=== PATIENT | male | born 1980 | race Two or more races ===

== ENCOUNTER 2016-07-16 14:28 | Emergency (ER) | payer SELFPAY ==
[~2016-07-16] VITALS: Ht 175.3 cm; Wt 98.5 kg
[2016-07-16 15:07] VITALS: Ht 175.3 cm; Wt 98.5 kg
== END 2016-07-16 18:39 | disposition left against medical advice (07) ==
LOC: FTE 14:28
DX: Z53.21 Procedure and treatment not carried out due to patient leaving prior to being seen by health care provider (principal)

== ENCOUNTER 2018-06-10 18:32 | Emergency (ER) | END 2018-06-10 21:25 | disposition home or self-care (01) ==

== ENCOUNTER 2018-11-22 19:15 | Observation (INO) | payer BC ==
[~2018-11-22] VITALS: Ht 175.3 cm; Wt 95.9 kg
[~2018-11-22 19:15] MED LIST: CEPH-443 PO; IBUP800T48 PO
--- NOTE | 2018-11-22 20:13 | ERD ---
ER Documentation Chief Complaint Chief Complaint WITNESSED SEIZURE LASTING APPROX 30 SEC. "PER WITNESS, PT STIFFENED UP". HPI The patient is a 38-year-old male, presenting to the ER because of a witnessed seizure lasting for approximately 30 seconds per EMS. He is unable to provide any history, the history is obtained from EMS and medical record. He has history of substance abuse Medical history: HIV Past surgical l history/ social history/review of system: Unable to obtain due to his condition ROS All systems reviewed and are negative except as per history of present illness. Medications Home Meds Discontinued Scripts Ibuprofen* (Motrin*) 800 Mg Tab, 800 MG PO Q6, #30 TAB Prov:ROGELIO FINE PA-C 06/10/18 Cephalexin* (Keflex*) 500 Mg Capsule, 500 MG PO QID for 7 Days, CAP Prov:ROGELIO FINE PA-C 06/10/18 Allergies Allergies: Coded Allergies: No Known Drug Allergy (Verified Allergy, Unknown, 11/22/18) PMhx/Soc Hx Miscellaneous Medical Probl: Yes (HIV (+), HEMMORHOIDS, BACK PAIN/PROBLEMS) Hx Alcohol Use: No Hx Substance Use: Yes (SMOKES METH, LAST USE TODAY) Hx Tobacco Use: No Smoking Status: Unknown if ever smoked Physical Exam Vitals Vital Signs Date Temp Pulse Resp B/P (MAP) Pulse Ox O2 O2 Flow FiO2 Time Delivery Rate 11/22/18 98.7 99 22 140/86 98 19:19 (104) Physical Exam Const: No acute distress. Head: Atraumatic. Eyes: Normal Conjunctiva. ENT: Normal External Ears, Nose and Mouth. Neck: Full range of motion. No meningismus. Resp: Clear to auscultation bilaterally. Cardio: Regular rate and rhythm. Abd: Soft, non distended, normal bowel sounds, non tender. Skin: No petechiae or rashes. Back: No midline or flank tenderness. Ext: No cyanosis, or edema. Neur: Unable to perform due to his condition Psych: Unable to perform due to his condition Result Diagram: 11/22/18192911/22/181929 Results 24 hrs Laboratory Tests Test 11/22/18 19:30 11/22/18 20:38 White Blood Count 9.6 10^3/ul Red Blood Count 4.87 10^6/ul Hemoglobin 13.3 g/dl Hematocrit 42.6 % Mean Corpuscular Volume 87.5 fl Mean Corpuscular Hemoglobin 27.3 pg Mean Corpuscular Hemoglobin Concent 31.2 g/dl Red Cell Distribution Width 13.9 % Platelet Count 279 10^3/UL Mean Platelet Volume 9.6 fl Immature Granulocytes % 0.200 % Neutrophils % 65.0 % Lymphocytes % 23.9 % Monocytes % 9.6 % Eosinophils % 1.1 % Basophils % 0.2 % Nucleated Red Blood Cells % 0.0 /100WBC Immature Granulocytes # 0.020 10^3/ul Neutrophils # 6.3 10^3/ul Lymphocytes # 2.3 10^3/ul Monocytes # 0.9 10^3/ul Eosinophils # 0.1 10^3/ul Basophils # 0.0 10^3/ul Nucleated Red Blood Cells # 0.0 10^3/ul Sodium Level 144 mmol/L Potassium Level 3.6 mmol/L Chloride Level 107 mmol/L Carbon Dioxide Level 30 mmol/L Anion Gap 7 Blood Urea Nitrogen 9 mg/dl Creatinine 0.96 mg/dl Est Glomerular Filtrat Rate mL/min > 60 mL/min Glucose Level 85 mg/dl Calcium Level 8.8 mg/dl Total Bilirubin 0.5 mg/dl Direct Bilirubin 0.00 mg/dl Indirect Bilirubin 0.5 mg/dl Aspartate Amino Transf (AST/SGOT) 39 IU/L Alanine Aminotransferase (ALT/SGPT) 41 IU/L Alkaline Phosphatase 94 IU/L Total Protein 7.3 g/dl Albumin 4.1 g/dl Globulin 3.20 g/dl Albumin/Globulin Ratio 1.28 Salicylates Level < 1.0 mg/dl Acetaminophen Level < 10.0 ug/ml Ethyl Alcohol Level < 10.0 mg/dl Bedside Glucose 97 mg/dL Current Medications Medications Dose Sig/Minda Start Time Status Last (Trade) Ordered Route PRN Stop Time Admin Dose Reason Admin 100 ml @ ONCE ONCE 11/22/18 Levetiracetam 400 mls/hr IVPB 22:00 11/22/18 22:14 Procedures/MDM [address] [address] Radiology Main Line: [phone] DIAGNOSTIC IMAGING REPORT Patient: ELOINA CONTI : 1980 Age: 38 Sex: M MR #: [id number] DOS: 11/22/182016 Ordering MD: JO ANN LE MD Location: E/R Room/Bed: PROCEDURE: CT brain without contrast CLINICAL INDICATION: Headaches. Medical clearance TECHNIQUE: A CT of the brain was performed utilizing axial sections from the skull base through the vertex without contrast. Sagittal and coronal images were also reformatted. DICOM images are available. One or more of the following dose reduction techniques were used: Automated exposure control, adjustment of the mA and/or kV according to patient size, use of iterative reconstruction technique. The exam CTDIvol = 38.20 mGy and DLP = 634.23 mGy-cm. COMPARISON: None available FINDINGS: No acute intracranial hemorrhage is identified. There is no mass effect or midline shift. No extra-axial fluid collection is seen. The ventricles and sulci are within normal limits for size and configuration. The density of the brain is within normal limits. Pierre-white differentiation is preserved. The osseous structures are unremarkable. The mastoid air cells and visualized paranasal sinuses are clear. RPTAT:HJJR IMPRESSION: Unremarkable noncontrast CT of the brain. Physician Audi Date Time Electronically viewed and signed by Physician Audi on 11/22/2018 21:32 JR/ CC: JO ANN LE MD [id number] [place] [address] Radiology Main Line: [phone] DIAGNOSTIC IMAGING REPORT Patient: ELOINA CONTI : 1980 Age: 38 Sex: M MR #: [id number] DOS: 11/22/182016 Ordering MD: JO ANN LE MD Location: E/R Room/Bed: PROCEDURE: XR chest. CLINICAL INDICATION: Mental status change TECHNIQUE: Portable AP view of the chest was obtained. COMPARISON: None. FINDINGS: Cardiomediastinal silhouette is normal. There is no pneumothorax or pleural effusion. There is no focal pulmonic consolidation. IMPRESSION: 1. No acute pulmonary abnormality. RPTAT:HAJM Physician Subhash Date Time Electronically viewed and signed by Physician Subhash on 11/22/2018 21:33 RM/ CC: JO ANN LE MD [id number] EKG: Read by emergency physician Rate/Rhythm: Normal Sinus Rhythm 98 beats/min QRS, ST, T-waves: No ST elevation, no T inversion Impression: Normal EKG UA/UDS Pending MEDICAL MAKING DECISION: He is a 38-year-old male, presenting with acute new onset seizure, was treated with Keppra 1000 mg IV, has seizure precaution. The differential diagnoses considered include but are not limited to substance abuse, psychiatric illness, anxiety attack, panic attack Departure Diagnosis: Primary Impression: New onset seizure Additional Impressions: Encephalopathy acute Anemia Condition: Stable Comments I discussed the findings with the patient. I am waiting for the admitting physician to call back to admit the patient. The patient is admitted to Tel Disclaimer: Inadvertent spelling and grammatical errors are likely due to EHR/dictation software use and do not reflect on the overall quality of patient care. Also, please note that the electronic time recorded on this note does not necessarily reflect the actual time of the patient encounter. JO ANN LE MD November 22, 2018 20:13
[2018-11-22] MEDS ORDERED: LEVETIRACETAM 1000 MG (PMX) 100 ML IVPB ONE (22:00)
[2018-11-22] MEDS ORDERED: SOD CHLORIDE 0.9% 1,000 ML IV SCH (22:03)
[2018-11-22] MEDS ORDERED: ACETAMINOPHEN 325 MG TAB PO PRN (22:30)
[2018-11-22] MEDS ORDERED: DOCUSATE SODIUM 100 MG CAP PO PRN (22:30)
[2018-11-22] MEDS ORDERED: NACL 0.9% 3 ML SYG IV SCH (22:30)
[2018-11-22] MEDS ORDERED: BISACODYL (EC) 5 MG TAB PO PRN (22:30)
[2018-11-23] VITALS (8 sets, daily range): BP systolic 124–136; BP diastolic 79–80; PULSE 90–105; RESP 18; Ht 175.3 cm; Wt 95.9 kg
--- NOTE | 2018-11-23 02:49 | HP ---
Date/Time of Note Date/Time of Note DATE: 11/23/18 TIME: 02:48 Assessment/Plan VTE Prophylaxis SCD applied (from Nsg): Yes Pharmacological prophylaxis: NA/contraindicated Pharm contraindication: low risk/ambulating Lines/Catheters IV Catheter Type (from Nrsg): Peripheral IV Assessment/Plan Hospital Course This is a 38-year-old male being admitted to the telemetry floor for observation for: #1 acute encephalopathy: At this time patient appears to be back to baseline. Likely toxic metabolic secondary to illicit drug use. CT scan of the head and was negative for any acute abnormalities. Will monitor patient closely. Urine drug screen positive for methamphetamine. Patient also reports use of GHB #2 witnessed seizure: Patient had a witnessed seizure at work which lasted approximately 30 seconds. He has not had any seizure activity prior. This likely was provoked by illicit drug use in the setting of methamphetamine and GHB use. Urine drug screen was positive for amphetamines. He was given a dose of Keppra in the emergency department, I will not continue him on any further antiseizure medications at the current time. PRN Ativan for seizures. Seizure precautions. CT of the brain was negative for any acute abnormalities. As this was a first-time seizure I will not pursue any further work-up at the current time. If he does have recurrent seizures and consider MRI of the brain and neurology consultation. #3 illicit drug use: Reports ongoing methamphetamine and GHB use. Will need to encourage cessation. Monitor for signs of withdrawal. PRN Ativan #4 tobacco use: Encourage cessation #5 HIV positive: We will need to confirm patient's home medications and c ontinue. He does follow-up in the clinic as an outpatient and states that he is undetectable. Further work-up as an outpatient #6 DVT GI prophylaxis: SCDs, no GI prophylaxis indicated Further treatment strategy will be implemented as per the clinical course Result Diagram: 11/22/18192911/22/181929 Results 24hrs Laboratory Tests Test 11/22/18 19:30 11/22/18 20:38 11/22/18 22:35 11/22/18 22:36 White Blood Count 9.6 Red Blood Count 4.87 Hemoglobin 13.3 L Hematocrit 42.6 Mean Corpuscular 87.5 Volume Mean Corpuscular 27.3 L Hemoglobin Mean Corpuscular 31.2 L Hemoglobin Concen t Red Cell 13.9 Distribution Width Platelet Count 279 Mean Platelet 9.6 Volume Immature 0.200 Granulocytes % Neutrophils % 65.0 Lymphocytes % 23.9 Monocytes % 9.6 Eosinophils % 1.1 Basophils % 0.2 Nucleated Red 0.0 Blood Cells % Immature 0.020 Granulocytes # Neutrophils # 6.3 Lymphocytes # 2.3 Monocytes # 0.9 Eosinophils # 0.1 Basophils # 0.0 Nucleated Red 0.0 Blood Cells # Sodium Level 144 Potassium Level 3.6 Chloride Level 107 Carbon Dioxide 30 Level Anion Gap 7 Blood Urea 9 Nitrogen Creatinine 0.96 Est Glomerular > 60 Filtrat Rate mL/min Glucose Level 85 Calcium Level 8.8 Total Bilirubin 0.5 Direct Bilirubin 0.00 Indirect 0.5 Bilirubin Aspartate Amino 39 Transf (AST/SGOT) Alanine 41 Aminotransferase (ALT/SGPT) Alkaline 94 Phosphatase Total Protein 7.3 Albumin 4.1 Globulin 3.20 Albumin/Globulin 1.28 Ratio Salicylates Level < 1.0 L Acetaminophen < 10.0 L Level Ethyl Alcohol < 10.0 H Level HIV (1&2) REACTIVE H Antibody Bedside Glucose 97 Urine Opiates Negative Screen Urine Negative Barbiturates Urine POSITIVE Amphetamines Screen Urine Negative Benzodiazepines Screen Urine Cocaine Negative Screen Urine Negative Cannabinoids Urine Color KIMMIE Urine Clarity SLIGHTLY CLOUDY A Urine pH 5.0 Urine Specific 1.027 [place] Urine Ketones TRACE A Urine Nitrite NEGATIVE Urine Bilirubin NEGATIVE Urine 2+ H Urobilinogen Urine Leukocyte NEGATIVE Esterase Urine Microscopic 4 RBC Urine Microscopic 1 WBC Urine Bacteria FEW A Urine Mucus MODERATE Urine Hemoglobin NEGATIVE Urine Glucose NEGATIVE Urine Total NEGATIVE Protein HPI/ROS Admit Date/Time Admit Date/Time Hx of Present Illness Chief complaint: Seizure per EMS The following history was obtained from the ED physician documentation as well partially from the patient as he was not able to give a full details given his seizures. Patient presented to [facility] ER after he was witnessed to have a seizure that lasted approximately 30 seconds as per the EMS. 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 Upon arrival to the [facility] patient initially was not able to provide any history however he did subsequently return to baseline mental status. CT of the brain was performed that did not show any acute abnormalities. Patient was given a loading dose of Keppra in the emergency department. Upon my examination of the patient at the bedside he did appear to be alert and oriented x3. He did report that he felt slightly weak however he felt like he was near his baseline. He denies any previous history of seizures. He did report using methamphetamines as well as GHB within a few hours prior to the seizure event. He denied any chest pain or nausea vomiting or diarrhea. Patient does report that he has a history of HIV and he does follow-up regularly at a clinic. He does report that his counts are undetectable Allergies: NKDA Medications: See NAGI MUHAMMAD Const: As per HPI Eyes : No pain discharge or redness or change in visual acuity ENT: No pain, sore throat, congestion, congestion, dysphagia or discharge Respiratory: No shortness of breath, cough, sputum, wheezing, or pleuritic pain Cardiovascular: No chest pain, palpitation, PND, or edema GI : no change in appetite, abdominal pain, nausea, vomiting, diarrhea, constipation, or change in the color his stool Genitourinary: No dysuria, hematuria, flank pain , discharge or CVA tenderness Musculoskeletal: No joint pain, back pain, neck pain, restricted range of motion in neck or joints Skin: No rash, bruising or hives Neuro: As per HPI Endocrine: No polyuria, polydipsia, temperature intolerance Psych: No hallucination, depression, anxiety or suicidal ideation PMH/Family/Social Past Medical History HIV positive Medications Current Medications Sodium Chloride 1,000 ml @ 100 mls/hr Q10H IV ; Start 11/22/18 at 22:03; Stop 11/23/18 at 08:02 IV Flush (NS 3 ml) 3 ml PER PROTOCOL IV ; Start 11/22/18 at 22:30 Lorazepam (Ativan) 2 mg Q2H PRN IV SEIZURES; Start 11/22/18 at 22:30 Acetaminophen (Tylenol Tab) 650 mg Q6H PRN PO .PAIN 1-3 OR TEMP; Start 11/22/18 at 22:30 Docusate Sodium (Colace) 100 mg Q12H PRN PO .CONSTIPATION; Start 11/22/18 at 22:30 Bisacodyl (Dulcolax) 5 mg DAILY PRN PO .CONSTIPATION; Start 11/22/18 at 22:30 Coded Allergies: No Known Drug Allergy (Verified Allergy, Unknown, 11/22/18) Past Surgical History Past Surgical Hx: no surgical history Family History Significant Family History: no pertinent family hx Social History Smoking Status: Current every day smoker Drug Use: other (methamphetamine, GHB) Exam/Review of Systems Vital Signs Vitals Vital Signs Date Temp Pulse Resp B/P (MAP) Pulse Ox O2 O2 Flow FiO2 Time Delivery Rate 11/22/18 93 20 117/71 100 Room Air 23:49 (86) 11/22/18 98.7 19:19 Exam Exam General: Patient is a pleasant male currently lying in bed in no acute distress, he does appear tired HEENT: Atraumatic, normocephalic. The pupils are equal, round and reactive. Extraocular motor are intact, no visible tongue lesion noted Neck: Supple with full range of motion. No rigidity or meningismus Chest: Nontender Lungs: Clear to auscultation bilaterally no crackles rales or wheezing Heart: Normal S1-S2, Regular rhythm and rate. Abdomen: Soft , nontender, nondistended , bowel sounds are present. No guarding no rebound tenderness , No masses or organomegaly. No costovertebral temporal angle mass Extremities: Normal to inspection, no edema no cyanosis Neurologic: Normal mental status, speech normal, cranial nerves II through XII are intact, motor and sensory are intact,, Psych: Currently patient does not appear to be anxious or tremulous. Additional Comments PROCEDURE: CT brain without contrast CLINICAL INDICATION: Headaches. Medical clearance TECHNIQUE: A CT of the brain was performed utilizing axial sections from the skull base through the vertex without contrast. Sagittal and coronal images were also reformatted. DICOM images are available. One or more of the following dose reduction techniques were used: Automated exposure control, adjustment of the mA and/or kV according to patient size, use of iterative reconstruction technique. The exam CTDIvol = 38.20 mGy and DLP = 634.23 mGy-cm. COMPARISON: None available FINDINGS: No acute intracranial hemorrhage is identified. There is no mass effect or midline shift. No extra-axial fluid collection is seen. The ventricles and sulci are within normal limits for size and configuration. The density of the brain is within normal limits. Pierre-white differentiation is preserved. The osseous structures are unremarkable. The mastoid air cells and visualized paranasal sinuses are clear. RPTAT:HJJR IMPRESSION: Unremarkable noncontrast CT of the brain. Mason Moore Physician Date Time Electronically viewed and signed by Mason Moore Physician on 11/22/2018 21:32 JR/ CC: JO ANN LE MD [id number] PROCEDURE: XR chest. CLINICAL INDICATION: Mental status change TECHNIQUE: Portable AP view of the chest was obtained. COMPARISON: None. FINDINGS: Cardiomediastinal silhouette is normal. There is no pneumothorax or pleural effusion. There is no focal pulmonic consolidation. IMPRESSION: 1. No acute pulmonary abnormality. RPTAT:HAJM Racheal Gongora Physician Date Time Electronically viewed and signed by Racheal Gongora Physician on 11/22/2018 21:33 RM/ CC: JO ANN LE MD [id number] LASHA JOE November 23, 2018 02:49
[2018-11-23] MEDS: LORAZEPAM 2 MG INJ IV PRN ×3 (05:44→21:11)
--- NOTE | 2018-11-23 12:21 | CONS ---
Assessment/Plan Assessment/Plan Hospital Course 38 yo M with hx of HIV who presents for evaluation following his first reported seizure of life... for which neurology is consulted. He notes using methamphetamine, which is likely the underlying precipitant. New onset epilepsy is unlikely. CTH is unremarkable. P: MRI brain for further characterization EEG to evaluate for epileptiform activity Ok to defer AED therapy for now Ativan IV PRN prolonged seizure or for cluster Cont medical management per primary Will follow clinically Consultation Date/Type/Reason Admit Date/Time Type of Consult Neurology Reason for Consultation seizure Requesting Provider: SREEKANTH MARCANO MD Date/Time of Note DATE: 11/23/18 TIME: 12:19 Hx of Present Illness 38 yo M with hx of HIV and illicit drug use who presented to the ED following a witnessed seizure episode. History was obtained from pt and chart review. The pt states that he uses methamphetamine and GHB daily. He states that yesterday he had used them and within a couple hours, he was told he had a seizure. He recalls waking up in the hospital. He denies prior seizure episodes. He does confirm a hx of HIV. He currently endorses feeling weak and tired. Hx of Present Illness Chief complaint: Seizure per EMS The following history was obtained from the ED physician documentation as well partially from the patient as he was not able to give a full details given his seizures. Patient presented to [facility] ER after he was witnessed to have a seizure that lasted approximately 30 seconds as per the EMS. 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 Upon arrival to the [facility] patient initially was not able to provide any history however he did subsequently return to baseline mental status. CT of the brain was performed that did not show any acute abnormalities. Patient was given a loading dose of Keppra in the emergency department. Upon my examination of the patient at the bedside he did appear to be alert and oriented x3. He did report that he felt slightly weak however he felt like he was near his baseline. He denies any previous history of seizures. He did report using methamphetamines as well as GHB within a few hours prior to the seizure event. He denied any chest pain or nausea vomiting or diarrhea. Patient does report that he has a history of HIV and he does follow-up regularly at a clinic. He does report that his counts are undetectable negative unless noted otherwise in HPI Exam/Review of Systems Exam Vitals Vital Signs Date Temp Pulse Resp B/P (MAP) Pulse Ox O2 O2 Flow FiO2 Time Delivery Rate 11/23/18 98.8 101 18 136/79 99 Room Air 11:13 (98) Exam PE: Gen Appearance: No Apparent Distress HEENT: Normocephalic Cardiovascular: Regular rate Lungs: Clear bilaterally Abdomen: Soft Extremities: Dry NE: The patient was alert and oriented. Language was normal. Fund of knowledge was normal. Pupils were equal and reactive to light. There was no afferent pupillary defect. Visual shultz were normal. Funduscopic examination was limited. Extra-ocular movements were full. Ptosis was absent. There was no nystagmus. Facial sensation was normal. Face was symmetric with normal strength. Hearing was intact. Palate movements were normal. Neck strength was normal. There was normal tongue bulk and speed of movement. Tone was normal. Muscle bulk was normal. Mild hand tremors were noted. Arms and legs were mildly weak, symmetrically. Vibration sensation was normal. Temperature and pinprick sensation was normal. Rapid alternating movements were normal. There was no dysmetria. There was no intention tremor. Gait was deferred due to bedrest. Arm and leg reflexes were 2+ and symmetric. Anaya's sign was absent. Plantar responses were flexor. Results Result Diagram: 11/23/18 0425 11/23/18 0425 Results 24hrs Laboratory Tests Test 11/22/18 19:30 11/22/18 20:38 11/22/18 22:35 11/22/18 22:36 White Blood Count 9.6 Red Blood Count 4.87 Hemoglobin 13.3 L Hematocrit 42.6 Mean Corpuscular 87.5 Volume Mean Corpuscular 27.3 L Hemoglobin Mean Corpuscular 31.2 L Hemoglobin Concen t Red Cell 13.9 Distribution Width Platelet Count 279 Mean Platelet 9.6 Volume Immature 0.200 Granulocytes % Neutrophils % 65.0 Lymphocytes % 23.9 Monocytes % 9.6 Eosinophils % 1.1 Basophils % 0.2 Nucleated Red 0.0 Blood Cells % Immature 0.020 Granulocytes # Neutrophils # 6.3 Lymphocytes # 2.3 Monocytes # 0.9 Eosinophils # 0.1 Basophils # 0.0 Nucleated Red 0.0 Blood Cells # Sodium Level 144 Potassium Level 3.6 Chloride Level 107 Carbon Dioxide 30 Level Anion Gap 7 Blood Urea 9 Nitrogen Creatinine 0.96 Est Glomerular > 60 Filtrat Rate mL/min Glucose Level 85 Calcium Level 8.8 Total Bilirubin 0.5 Direct Bilirubin 0.00 Indirect 0.5 Bilirubin Aspartate Amino 39 Transf (AST/SGOT) Alanine 41 Aminotransferase (ALT/SGPT) Alkaline 94 Phosphatase Total Protein 7.3 Albumin 4.1 Globulin 3.20 Albumin/Globulin 1.28 Ratio Salicylates Level < 1.0 L Acetaminophen < 10.0 L Level Ethyl Alcohol < 10.0 H Level HIV (1&2) REACTIVE H Antibody Bedside Glucose 97 Urine Opiates Negative Screen Urine Negative Barbiturates Urine POSITIVE Amphetamines Screen Urine Negative Benzodiazepines Screen Urine Cocaine Negative Screen Urine Negative Cannabinoids Urine Color KIMMIE Urine Clarity SLIGHTLY CLOUDY A Urine pH 5.0 Urine Specific 1.027 [place] Urine Ketones TRACE A Urine Nitrite NEGATIVE Urine Bilirubin NEGATIVE Urine 2+ H Urobilinogen Urine Leukocyte NEGATIVE Esterase Urine Microscopic 4 RBC Urine Microscopic 1 WBC Urine Bacteria FEW A Urine Mucus MODERATE Urine Hemoglobin NEGATIVE Urine Glucose NEGATIVE Urine Total NEGATIVE Protein Test 11/23/18 04:25 White Blood Count 7.4 # Red Blood Count 4.65 L Hemoglobin 12.7 L Hematocrit 39.9 L Mean Corpuscular 85.8 Volume Mean Corpuscular 27.3 L Hemoglobin Mean Corpuscular 31.8 L Hemoglobin Concen t Red Cell 14.2 Distribution Width Platelet Count 250 Mean Platelet 9.7 Volume Immature 0.300 Granulocytes % Neutrophils % 61.2 Lymphocytes % 27.3 Monocytes % 9.4 Eosinophils % 1.5 Basophils % 0.3 Nucleated Red 0.0 Blood Cells % Immature 0.020 Granulocytes # Neutrophils # 4.5 Lymphocytes # 2.0 Monocytes # 0.7 Eosinophils # 0.1 Basophils # 0.0 Nucleated Red 0.0 Blood Cells # Sodium Level 141 Potassium Level 3.3 L Chloride Level 106 Carbon Dioxide 27 Level Anion Gap 8 Blood Urea 10 Nitrogen Creatinine 0.88 Est Glomerular > 60 Filtrat Rate mL/min Glucose Level 102 Hemoglobin A1c 5.2 Calcium Level 8.9 Total Bilirubin 0.6 Direct Bilirubin 0.00 Indirect 0.6 Bilirubin Aspartate Amino 32 Transf (AST/SGOT) Alanine 33 Aminotransferase (ALT/SGPT) Alkaline 89 Phosphatase Total Protein 6.3 # Albumin 3.6 Globulin 2.70 Albumin/Globulin 1.33 Ratio Triglycerides 56 Level Cholesterol Level 112 LDL Cholesterol, 49 Calculated HDL Cholesterol 52 Cholesterol/HDL 2.1 Ratio Thyroid 1.490 Stimulating Hormone (TSH) Medications Medication Current Medications IV Flush (NS 3 ml) 3 ml PER PROTOCOL IV ; Start 11/22/18 at 22:30 Lorazepam (Ativan) 2 mg Q2H PRN IV SEIZURES Last administered on 11/23/18at 05: 44; Admin Dose 2 MG; Start 11/22/18 at 22:30 Acetaminophen (Tylenol Tab) 650 mg Q6H PRN PO .PAIN 1-3 OR TEMP; Start 11/22/18 at 22:30 Docusate Sodium (Colace) 100 mg Q12H PRN PO .CONSTIPATION; Start 11/22/18 at 22:30 Bisacodyl (Dulcolax) 5 mg DAILY PRN PO .CONSTIPATION; Start 11/22/18 at 22:30 Past Medical History reviewed Home Meds Discontinued Scripts Ibuprofen* (Motrin*) 800 Mg Tab, 800 MG PO Q6, #30 TAB Prov:ROGELIO FINE PA-C 06/10/18 Cephalexin* (Keflex*) 500 Mg Capsule, 500 MG PO QID for 7 Days, CAP Prov:ROGELIO FINE PA-C 06/10/18 Medications Current Medications IV Flush (NS 3 ml) 3 ml PER PROTOCOL IV ; Start 11/22/18 at 22:30 Lorazepam (Ativan) 2 mg Q2H PRN IV SEIZURES Last administered on 11/23/18at 05:44; Admin Dose 2 MG; Start 11/22/18 at 22:30 Acetaminophen (Tylenol Tab) 650 mg Q6H PRN PO .PAIN 1-3 OR TEMP; Start 11/22/18 at 22:30 Docusate Sodium (Colace) 100 mg Q12H PRN PO .CONSTIPATION; Start 11/22/18 at 22:30 Bisacodyl (Dulcolax) 5 mg DAILY PRN PO .CONSTIPATION; Start 11/22/18 at 22:30 Allergies: Coded Allergies: No Known Drug Allergy (Verified Allergy, Unknown, 11/22/18) Past Surgical History reviewed Past Surgical Hx: no surgical history Social History reviewed Smoking Status: Current every day smoker Drug Use: other (methamphetamine, GHB) BEREKET HERNANDEZ NP November 23, 2018 12:21
[2018-11-23] MEDS ORDERED: POTASSIUM CHLORIDE 20 MEQ POWDER FOR ORAL SOLN PO ONE (14:30)
--- NOTE | 2018-11-23 15:12 | PN ---
Date/Time of Note Date/Time of Note DATE: 11/23/18 TIME: 15:04 Assessment/Plan VTE Prophylaxis Risk score (from Ns)>0 risk: 1 SCD applied (from Ns): Yes Pharmacological prophylaxis: heparin Lines/Catheters IV Catheter Type (from [facility]): Peripheral IV Urinary Cath still in place: No Assessment/Plan Hospital Course 38 yo male with HIV who suffered seizure Seizure: - AEDs per neurology - EEG pending HIV: - Continue ARVs Result Diagram: 11/23/1842411/23/18424 Results 24hrs Laboratory Tests Test 11/22/18 19:30 11/22/18 20:38 11/22/18 22:35 11/22/18 22:36 White Blood Count 9.6 Red Blood Count 4.87 Hemoglobin 13.3 L Hematocrit 42.6 Mean Corpuscular 87.5 Volume Mean Corpuscular 27.3 L Hemoglobin Mean Corpuscular 31.2 L Hemoglobin Concen t Red Cell 13.9 Distribution Width Platelet Count 279 Mean Platelet 9.6 Volume Immature 0.200 Granulocytes % Neutrophils % 65.0 Lymphocytes % 23.9 Monocytes % 9.6 Eosinophils % 1.1 Basophils % 0.2 Nucleated Red 0.0 Blood Cells % Immature 0.020 Granulocytes # Neutrophils # 6.3 Lymphocytes # 2.3 Monocytes # 0.9 Eosinophils # 0.1 Basophils # 0.0 Nucleated Red 0.0 Blood Cells # Sodium Level 144 Potassium Level 3.6 Chloride Level 107 Carbon Dioxide 30 Level Anion Gap 7 Blood Urea 9 Nitrogen Creatinine 0.96 Est Glomerular > 60 Filtrat Rate mL/min Glucose Level 85 Calcium Level 8.8 Total Bilirubin 0.5 Direct Bilirubin 0.00 Indirect 0.5 Bilirubin Aspartate Amino 39 Transf (AST/SGOT) Alanine 41 Aminotransferase (ALT/SGPT) Alkaline 94 Phosphatase Total Protein 7.3 Albumin 4.1 Globulin 3.20 Albumin/Globulin 1.28 Ratio Salicylates Level < 1.0 L Acetaminophen < 10.0 L Level Ethyl Alcohol < 10.0 H Level HIV (1&2) REACTIVE H Antibody Bedside Glucose 97 Urine Opiates Negative Screen Urine Negative Barbiturates Urine POSITIVE Amphetamines Screen Urine Negative Benzodiazepines Screen Urine Cocaine Negative Screen Urine Negative Cannabinoids Urine Color KIMMIE Urine Clarity SLIGHTLY CLOUDY A Urine pH 5.0 Urine Specific 1.027 Odd Urine Ketones TRACE A Urine Nitrite NEGATIVE Urine Bilirubin NEGATIVE Urine 2+ H Urobilinogen Urine Leukocyte NEGATIVE Esterase Urine Microscopic 4 RBC Urine Microscopic 1 WBC Urine Bacteria FEW A Urine Mucus MODERATE Urine Hemoglobin NEGATIVE Urine Glucose NEGATIVE Urine Total NEGATIVE Protein Test 11/23/18 04:25 White Blood Count 7.4 # Red Blood Count 4.65 L Hemoglobin 12.7 L Hematocrit 39.9 L Mean Corpuscular 85.8 Volume Mean Corpuscular 27.3 L Hemoglobin Mean Corpuscular 31.8 L Hemoglobin Concen t Red Cell 14.2 Distribution Width Platelet Count 250 Mean Platelet 9.7 Volume Immature 0.300 Granulocytes % Neutrophils % 61.2 Lymphocytes % 27.3 Monocytes % 9.4 Eosinophils % 1.5 Basophils % 0.3 Nucleated Red 0.0 Blood Cells % Immature 0.020 Granulocytes # Neutrophils # 4.5 Lymphocytes # 2.0 Monocytes # 0.7 Eosinophils # 0.1 Basophils # 0.0 Nucleated Red 0.0 Blood Cells # Sodium Level 141 Potassium Level 3.3 L Chloride Level 106 Carbon Dioxide 27 Level Anion Gap 8 Blood Urea 10 Nitrogen Creatinine 0.88 Est Glomerular > 60 Filtrat Rate mL/min Glucose Level 102 Hemoglobin A1c 5.2 Calcium Level 8.9 Total Bilirubin 0.6 Direct Bilirubin 0.00 Indirect 0.6 Bilirubin Aspartate Amino 32 Transf (AST/SGOT) Alanine 33 Aminotransferase (ALT/SGPT) Alkaline 89 Phosphatase Total Protein 6.3 # Albumin 3.6 Globulin 2.70 Albumin/Globulin 1.33 Ratio Triglycerides 56 Level Cholesterol Level 112 LDL Cholesterol, 49 Calculated HDL Cholesterol 52 Cholesterol/HDL 2.1 Ratio Thyroid 1.490 Stimulating Hormone (TSH) Subjective 24 Hr Interval Summary Free Text/Dictation Feels very tired No further seizures Exam/Review of Systems Exam Vitals Vital Signs Date Temp Pulse Resp B/P (MAP) Pulse Ox O2 O2 Flow FiO2 Time Delivery Rate 11/23/18 104 12:26 11/23/18 98.8 18 136/79 99 Room Air 11:13 (98) Results Results 24hrs Laboratory Tests Test 11/22/18 19:30 11/22/18 20:38 11/22/18 22:35 11/22/18 22:36 White Blood Count 9.6 Red Blood Count 4.87 Hemoglobin 13.3 L Hematocrit 42.6 Mean Corpuscular 87.5 Volume Mean Corpuscular 27.3 L Hemoglobin Mean Corpuscular 31.2 L Hemoglobin Concen t Red Cell 13.9 Distribution Width Platelet Count 279 Mean Platelet 9.6 Volume Immature 0.200 Granulocytes % Neutrophils % 65.0 Lymphocytes % 23.9 Monocytes % 9.6 Eosinophils % 1.1 Basophils % 0.2 Nucleated Red 0.0 Blood Cells % Immature 0.020 Granulocytes # Neutrophils # 6.3 Lymphocytes # 2.3 Monocytes # 0.9 Eosinophils # 0.1 Basophils # 0.0 Nucleated Red 0.0 Blood Cells # Sodium Level 144 Potassium Level 3.6 Chloride Level 107 Carbon Dioxide 30 Level Anion Gap 7 Blood Urea 9 Nitrogen Creatinine 0.96 Est Glomerular > 60 Filtrat Rate mL/min Glucose Level 85 Calcium Level 8.8 Total Bilirubin 0.5 Direct Bilirubin 0.00 Indirect 0.5 Bilirubin Aspartate Amino 39 Transf (AST/SGOT) Alanine 41 Aminotransferase (ALT/SGPT) Alkaline 94 Phosphatase Total Protein 7.3 Albumin 4.1 Globulin 3.20 Albumin/Globulin 1.28 Ratio Salicylates Level < 1.0 L Acetaminophen < 10.0 L Level Ethyl Alcohol < 10.0 H Level HIV (1&2) REACTIVE H Antibody Bedside Glucose 97 Urine Opiates Negative Screen Urine Negative Barbiturates Urine POSITIVE Amphetamines Screen Urine Negative Benzodiazepines Screen Urine Cocaine Negative Screen Urine Negative Cannabinoids Urine Color KIMMIE Urine Clarity SLIGHTLY CLOUDY A Urine pH 5.0 Urine Specific 1.027 Odd Urine Ketones TRACE A Urine Nitrite NEGATIVE Urine Bilirubin NEGATIVE Urine 2+ H Urobilinogen Urine Leukocyte NEGATIVE Esterase Urine Microscopic 4 RBC Urine Microscopic 1 WBC Urine Bacteria FEW A Urine Mucus MODERATE Urine Hemoglobin NEGATIVE Urine Glucose NEGATIVE Urine Total NEGATIVE Protein Test 11/23/18 04:25 White Blood Count 7.4 # Red Blood Count 4.65 L Hemoglobin 12.7 L Hematocrit 39.9 L Mean Corpuscular 85.8 Volume Mean Corpuscular 27.3 L Hemoglobin Mean Corpuscular 31.8 L Hemoglobin Concen t Red Cell 14.2 Distribution Width Platelet Count 250 Mean Platelet 9.7 Volume Immature 0.300 Granulocytes % Neutrophils % 61.2 Lymphocytes % 27.3 Monocytes % 9.4 Eosinophils % 1.5 Basophils % 0.3 Nucleated Red 0.0 Blood Cells % Immature 0.020 Granulocytes # Neutrophils # 4.5 Lymphocytes # 2.0 Monocytes # 0.7 Eosinophils # 0.1 Basophils # 0.0 Nucleated Red 0.0 Blood Cells # Sodium Level 141 Potassium Level 3.3 L Chloride Level 106 Carbon Dioxide 27 Level Anion Gap 8 Blood Urea 10 Nitrogen Creatinine 0.88 Est Glomerular > 60 Filtrat Rate mL/min Glucose Level 102 Hemoglobin A1c 5.2 Calcium Level 8.9 Total Bilirubin 0.6 Direct Bilirubin 0.00 Indirect 0.6 Bilirubin Aspartate Amino 32 Transf (AST/SGOT) Alanine 33 Aminotransferase (ALT/SGPT) Alkaline 89 Phosphatase Total Protein 6.3 # Albumin 3.6 Globulin 2.70 Albumin/Globulin 1.33 Ratio Triglycerides 56 Level Cholesterol Level 112 LDL Cholesterol, 49 Calculated HDL Cholesterol 52 Cholesterol/HDL 2.1 Ratio Thyroid 1.490 Stimulating Hormone (TSH) Medications Medication Current Medications IV Flush (NS 3 ml) 3 ml PER PROTOCOL IV ; Start 11/22/18 at 22:30 Lorazepam (Ativan) 2 mg Q2H PRN IV SEIZURES Last administered on 11/23/18at 05:44; Admin Dose 2 MG; Start 11/22/18 at 22:30 Acetaminophen (Tylenol Tab) 650 mg Q6H PRN PO .PAIN 1-3 OR TEMP; Start 11/22/18 at 22:30 Docusate Sodium (Colace) 100 mg Q12H PRN PO .CONSTIPATION; Start 11/22/18 at 22:30 Bisacodyl (Dulcolax) 5 mg DAILY PRN PO .CONSTIPATION; Start 11/22/18 at 22:30 SREEKANTH MARCANO MD November 23, 2018 15:11
[2018-11-24] VITALS (10 sets, daily range): BP systolic 123–134; BP diastolic 77–86; PULSE 64–100; RESP 18–20
--- NOTE | 2018-11-24 07:11 | EEG ---
EEG NOTE Report Details DATE OF TEST: 11/23/18 HISTORY: The patient is a 38-year-old M who presents following his first seizure of life. This EEG is requested to evaluate for an epileptic disorder. SEDATION: None. CONDITIONS OF RECORDING: This EEG was recorded digitally on the [employer] machine, using the [employer] 10-20 System of electrodes plus anterior temporals and Nz. STATES SAMPLED: Wakefulness and drowsiness. FINDINGS: During wakefulness, a well-formed posterior dominant rhythm was absent. The normal [id number] frequency-amplitude gradient was absent. The remainder of the awake background is notable for admixed theta and delta activity. Photic stimulation does not elicit any definite driving responses or epileptiform discharges. Hyperventilation was not performed. No asymmetries, focal abnormalities or epileptiform discharges were seen. IMPRESSION: Abnormal electroencephalogram due to: mild diffuse slowing. KASEY LAWSON November 24, 2018 07:11
--- NOTE | 2018-11-24 13:34 | CONS ---
Assessment/Plan Assessment/Plan Hospital Course 38 yo M with hx of HIV who presents for evaluation following his first reported seizure of life... for which neurology is consulted. He notes using methamphetamine, which is likely the underlying precipitant. New onset epilepsy is unlikely. MRI brain is technically limited, though without obvious acute intracranial pathology. EEG is normal. P: Ok to defer AED therapy for now Ativan IV PRN prolonged seizure or for cluster Cont medical management per primary Encourage illicit drug cessation Will follow Consultation Date/Type/Reason Admit Date/Time November 22, 2018 at 21:57 Type of Consult Neurology Reason for Consultation seizure Requesting Provider: SREEKANTH MARCANO MD Date/Time of Note DATE: 11/24/18 TIME: 13:34 24 HR Interval Summary Free Text/Dictation Continues acute care. No further seizure events reported. S/p MRI, EEG Exam Vital Signs Vitals Vital Signs Date Temp Pulse Resp B/P (MAP) Pulse Ox O2 O2 Flow FiO2 Time Delivery Rate 11/24/18 64 12:55 11/24/18 98.2 18 125/77 100 Room Air 11:07 (93) Intake and Output 11/23/18 11/23/18 11/24/18 1515:00 23:00 07:00 IntakeIntake Total 400 ml 700 ml 800 ml BalanceBalance 400 ml 700 ml 800 ml Exam PE: Gen Appearance: No Apparent Distress HEENT: Normocephalic Cardiovascular: Regular rate Lungs: Clear bilaterally Abdomen: Soft Extremities: Dry NE: The patient was alert and oriented. Language was normal. Fund of knowledge was normal. Pupils were equal and reactive to light. There was no afferent pupillary defect. Visual shultz were normal. Funduscopic examination was limited. Extra-ocular movements were full. Ptosis was absent. There was no nystagmus. Facial sensation was normal. Face was symmetric with normal strength. Hearing was intact. Palate movements were normal. Neck strength was normal. There was normal tongue bulk and speed of movement. Tone was normal. Muscle bulk was normal. Mild hand tremors were noted. Arms and legs were strong Vibration sensation was normal. Temperature and pinprick sensation was normal. Rapid alternating movements were normal. There was no dysmetria. There was no intention tremor. Gait was deferred due to bedrest. Arm and leg reflexes were 2+ and symmetric. Anaya's sign was absent. Plantar responses were flexor. DAVIDBEREKET COMPUTING MACHINE OPERATOR November 24, 2018 13:34
--- NOTE | 2018-11-24 15:24 | DS ---
Date/Time of Note Date/Time of Note DATE: 11/24/18 TIME: 15:23 Discharge Summary Admission/Discharge Info Admit Date/Time November 22, 2018 at 21:57 Discharge Date/Time Discharge Diagnosis Seizure Patient Condition: Stable Hospital Course 38 yo male with HIV who suffered seizure He was evaluated by neurology who recommended EEG which was negative. Head imaging was not suggestive of acute pathology. He was discharged and encouraged to follow up with his PMD and Dr Santos in clinic Home Meds Discontinued Scripts Ibuprofen* (Motrin*) 800 Mg Tab, 800 MG PO Q6, #30 TAB Prov:ROGELIO FINE PA-C 06/10/18 Cephalexin* (Keflex*) 500 Mg Capsule, 500 MG PO QID for 7 Days, CAP Prov:ROGELIO FINE PA-C 06/10/18 Primary Care Provider Not On Staff Doctor SREEKANTH MARCANO MD November 24, 2018 15:24
--- NOTE | 2018-11-24 15:25 | PDOCDIS ---
Discharge Instructions DIAGNOSIS Discharge Diagnosis Seizure CONDITION 2 [id number] Patient Condition: [id number] Stable HOME CARE INSTRUCTIONS: [id number] Diet Instructions: [id number] Regular ACTIVITY: [id number] Activity Restrictions: [id number] Slowly Increase Activity Rest between Activity Avoid heavy lifting Avoid Heavy Housework [id number] Bathing Restrictions: [id number] Shower FOLLOW UP/APPOINTMENTS Follow-up Plan Continue your medicaitons as prescribed Make an appointment to see neurologist Dr Santos in her clinic. Her office number is SREEKANTH MARCANO MD November 24, 2018 15:25
== END 2018-11-24 17:35 | disposition home or self-care (01) ==
LOC: E/R 19:15 → 6WM 21:57
PROVIDERS: ADMIT Family Medicine; ATTEND Internal Medicine
DX: R56.9 Unspecified convulsions (principal); F15.10 Other stimulant abuse, uncomplicated; Z72.0 Tobacco use
CPT/HCPCS: 36415; 70450; 70551; 71045; 80053; 80061; 80307; 81001; 82962; 83036; 84443; 85025; 86360; 86701; 86703; 93005; 95819; 97161; 99285; J1953; J2060; J7030; Z7500; Z7610; 81003; G0378

== ENCOUNTER 2018-12-31 15:43 | Inpatient (IN) | payer BC ==
[~2018-12-31] VITALS: Ht 175.3 cm; Wt 97.0 kg
[2018-12-31] MEDS ORDERED: SOD CHLORIDE 0.9% 1,000 ML IV STA ×2 (16:04→16:10)
[2018-12-31] MEDS ORDERED: LACTATED RINGER'S 1,000 ML IV STA ×2 (16:04→16:10)
[2018-12-31] MEDS ORDERED: ALBUTEROL 0.5% (NEB) 2.5 MG/0.5 ML AMP INH STA (16:23)
[2018-12-31] MEDS ORDERED: MAGNESIUM SULFATE 2 GM/50 ML 50 ML IVPB STA (16:23)
[2018-12-31] MEDS ORDERED: IPRATROPIUM (NEB) 0.5 MG/2.5 ML AMP INH STA (16:23)
[2018-12-31] MEDS ORDERED: MIDAZOLAM (DRIP) 50 mg/50 mL 50 ML IV STA (16:23)
[2018-12-31] MEDS ORDERED: CEFTRIAXONE 1 GM/50 ML (PMX) 50 ML IVPB ONE (16:30)
[2018-12-31] MEDS ORDERED: ENALAPRILAT 1.25 MG INJ IV ONE (16:30)
[2018-12-31] MEDS ORDERED: FENTAnyl (DRIP) 1000 mcg/100mL 100 ML IV ONE (16:30)
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
[2018-12-31] MEDS ORDERED: NACL 0.9% 3 ML SYG IV SCH (18:30)
[2018-12-31] MEDS ORDERED: ONDANSETRON 4 MG INJ IV PRN (18:30)
[2018-12-31] MEDS ORDERED: VECURONIUM 10 MG VIAL IV ONE (20:00)
[2018-12-31] MEDS ORDERED: MIDAZOLAM 1 MG/ML 5 ML INJ IV ONE (20:00)
[2018-12-31] MEDS ORDERED: SUCCINYLCHOLINE CHLORIDE 100 MG/5 ML SYG IV ONE (20:00)
[2018-12-31] MEDS: D5W-0.45 NACL + KCL 20 MEQ 1,000 ML IV SCH (20:08)
[2018-12-31 23:32] VITALS: RESP 30
[2018-12-31 23:45] VITALS: BP 142/98; PULSE 102; RESP 18
[2019-01-01] VITALS (46 sets, daily range): BP systolic 105–151; BP diastolic 69–96; PULSE 85–109; RESP 15–21; Ht 175.3 cm; Wt 97.0 kg
[2019-01-01] MEDS: MIDAZOLAM (DRIP) 50 mg/50 mL 50 ML IV SCH ×5 (01:01→19:13)
[2019-01-01] MEDS: FENTAnyl (DRIP) 1000 mcg/100mL 100 ML IV SCH ×4 (01:03→20:09)
[2019-01-01] MEDS: D5W-0.45 NACL + KCL 20 MEQ 1,000 ML IV SCH ×4 (03:49→19:45)
[2019-01-01] MEDS: ENOXAPARIN 30 MG/0.3 ML SYG SC SCH (08:09)
--- NOTE | 2019-01-01 08:27 | CONS ---
Assessment/Plan Assessment/Plan Assessment/Plan (Daily) Chest x-ray is clear. CT of the head is negative. Ventilator setting; AC of 20, tidal volume 500, PEEP of 5, 40% FiO2. Patient is currently on fentanyl 175 mics per hour, Versed 10 mg/h. Assessment and recommendations; 1. Patient admitted with drug overdose leading to respiratory failure with s table hemodynamics. 2. History of being HIV positive. No other details available. Currently there is no evidence to suggest any ongoing infective process. 3. Slight increase in leukocytosis. Possibly stress related. Continue with supportive care. Continue sedation with decreasing fentanyl dos ing. Patient to be given sedation vacation in 24 hours to assess for possibility of extubation. Meanwhile we will get more information regarding patient's HIV , obtain follow-up chest x-ray in 24 hours. 40 minutes of critical care time was spent evaluating patient. Consultation Date/Type/Reason Admit Date/Time December 31, 2018 Date of Consultation: Jan 01, 2019 Type of Consult Pulmonary/critical care Patient is a 38-year-old male who came into the hospital with severe agitation, patient had taken methamphetamines and had to be intubated for airway protection. Patient subsequently transferred to ICU. By the time I saw him over here, patient is orally intubated and sedated. Patient has remained hemodynamically stable. Past medical history; 1. History of drug abuse. Medications; reviewed. Allergies; no known allergies. Social history; positive for drug abuse. Family history, occupational history, not available. Review of systems; unable to be obtained. General exam; young male, orally intubated, somewhat arousable. Currently in no distress. Date/Time of Note DATE: 01/01/19 TIME: 08:23 Past Medical History Home Meds Unable to Obtain Active Prescriptions or Reported Meds Medications Current Medications Potassium Chloride/Dextrose/ Sod Cl 1,000 ml @ 125 mls/hr Q8H IV Last administered on 01/01/19at 03:49; Admin Dose 125 MLS/HR; Start 12/31/18 at 18:22 IV Flush (NS 3 ml) 3 ml PER PROTOCOL IV ; Start 12/31/18 at 18:30 Ondansetron HCl (Zofran Inj) 4 mg Q6H PRN IV NAUSEA/VOMITING; Start 12/31/18 at 18:30 Morphine Sulfate (morphine) 2 mg Q4H PRN IV .SEVERE PAIN 7-10; Start 12/31/18 at 18:30 Midazolam HCl 50 ml @ 1 mls/hr TITRATE IV Last administered on 01/01/19at 06:19; Admin Dose 10 MLS/HR; Start 01/01/19 at 01:00 Fentanyl 100 ml @ 2.5 mls/hr TITRATE IV Last administered on 01/01/19at 08:09; Admin Dose 17.5 MLS/HR; Start 01/01/19 at 01:00 Pantoprazole (Protonix Iv) 40 mg DAILY@06 IV ; Start 01/02/19 at 06:00 Enoxaparin Sodium (Lovenox) 30 mg DAILY SC Last administered on 01/01/19at 08:09 ; Admin Dose 30 MG; Start 01/01/19 at 09:00 Allergies: Coded Allergies: No Known Drug Allergy (Verified Allergy, Unknown, 12/31/18) Exam/Review of Systems Exam Vitals Vital Signs Date Temp Pulse Resp B/P (MAP) Pulse Ox O2 O2 Flow FiO2 Time Delivery Rate 01/01/19 40 08:00 01/01/19 98.6 96 20 129/78 100 Mechanical 07:30 (95) Ventilator Intake and Output 12/31/18 12/31/18 01/01/19 1515:00 23:00 07:00 IntakeIntake Total 1082.5 ml OutputOutput Total 1750 ml BalanceBalance -667.5 ml Exam H ENT exam; supple neck, no JVD. No lymphadenopathy. Midline trachea. No thyromegaly. Pupils are midsize and reactive to light. Patient has fair dentition. No neck masses. Orally intubated. Chest exam; clear to auscultation. S1-S2 audible, no murmurs. Regular rhythm. Abdomen exam; soft, nondistended. No organomegaly. Bowel sounds are audible. Extremity exam; no peripheral edema clubbing. Pulses 2+. CEO exam; patient is sedated but somewhat arousable. Results Result Diagram: 01/01/19 0436 01/01/19 0436 Results 24hrs Laboratory Tests Test 12/31/18 16:11 12/31/18 16:13 12/31/18 16:23 12/31/18 16:45 White Blood 6.7 Count Red Blood Count 5.34 Hemoglobin 14.9 Hematocrit 47.3 Mean Corpuscular 88.6 Volume Mean Corpuscular 27.9 L Hemoglobin Mean Corpuscular 31.5 L Hemoglobin Melissa nt Red Cell 13.7 Distribution Width Platelet Count 245 Mean Platelet 9.5 Volume Immature 0.400 Granulocytes % Neutrophils % 48.3 Lymphocytes % 40.2 Monocytes % 9.2 Eosinophils % 1.6 Basophils % 0.3 Nucleated Red 0.0 Blood Cells % Immature 0.030 Granulocytes # Neutrophils # 3.2 Lymphocytes # 2.7 Monocytes # 0.6 Eosinophils # 0.1 Basophils # 0.0 Nucleated Red 0.0 Blood Cells # Sodium Level 145 H Potassium Level 3.7 Chloride Level 108 Carbon Dioxide 24 Level Anion Gap 13 Blood Urea 13 Nitrogen Creatinine 0.98 Est Glomerular > 60 Filtrat Rate mL/min Glucose Level 121 Calcium Level 9.5 Total Bilirubin 0.5 Direct Bilirubin 0.00 Indirect 0.5 Bilirubin Aspartate Amino 32 Transf (AST/SGOT ) Alanine 25 Aminotransferase (ALT/SGPT) Alkaline 72 Phosphatase Creatine Kinase 193 Troponin I < 0.012 Total Protein 8.2 H Albumin 4.7 Globulin 3.50 H Albumin/Globulin 1.34 Ratio Lipase 20 L Ethyl Alcohol < 10.0 H Level Acetaminophen < 10.0 L Level Blood Gas Blood arterial Specimen Source Arterial Blood 12/31/2018 5:00: Date Drawn 56 PM Arterial Blood 7.323 L pH (Temp corrected) Arterial Blood 44.2 pCO2 (Temp correct) Arterial Blood 470.1 H pO2 (Temp corrected) Arterial Blood 22.4 HCO3 Arterial Blood -3.6 L Base Excess Arterial Blood 99.6 H Oxygen Saturatio n Kevin Test ACCEPTAB Arterial Blood Right Radial Gas Puncture Site Arterial 0.3 Blood Carboxyhem oglobin Arterial Blood 0.2 Methemoglobin Blood Gas A-a O2 198.7 H Differential Oxyhemoglobin 99.1 H Percent Blood Gas 37.0 Temperature Blood Gas 20.0 Respiration Rate Blood Gas Actual 20 Respiration Rate Blood Gas VENT - AC Modality FiO2 100.0 Blood Gas Tidal 500.0 Volume Blood Gas Low 5.0 PEEP Setting Blood Gas RT Notified Whom Blood Gas 12/31/2018 5:05: Notified Time 33 PM Urine Color YELLOW Urine Clarity SLIGHTLY CLOUDY A Urine pH 5.0 Urine Specific 1.028 [place] Urine Ketones TRACE A Urine Nitrite NEGATIVE Urine Bilirubin NEGATIVE Urine 1+ H Urobilinogen Urine Leukocyte NEGATIVE Esterase Urine 4 Microscopic RBC Urine 3 Microscopic WBC Urine Mucus MODERATE Urine Hemoglobin NEGATIVE Urine Glucose NEGATIVE Urine Total 1+ H Protein Urine Opiates Negative Screen Urine Negative Barbiturates Urine POSITIVE Amphetamines Screen Urine Negative Benzodiazepines Screen Urine Cocaine Negative Screen Urine Negative Cannabinoids Test 01/01/19 04:36 White Blood 12.0 #H Count Red Blood Count 4.74 Hemoglobin 13.2 L Hematocrit 41.6 L Mean Corpuscular 87.8 Volume Mean Corpuscular 27.8 L Hemoglobin Mean Corpuscular 31.7 L Hemoglobin Melissa nt Red Cell 13.9 Distribution Width Platelet Count 213 Mean Platelet 9.6 Volume Immature 0.300 Granulocytes % Neutrophils % 78.3 H Lymphocytes % 14.0 L Monocytes % 6.9 Eosinophils % 0.4 Basophils % 0.1 Nucleated Red 0.0 Blood Cells % Immature 0.040 H Granulocytes # Neutrophils # 9.4 H Lymphocytes # 1.7 Monocytes # 0.8 Eosinophils # 0.1 Basophils # 0.0 Nucleated Red 0.0 Blood Cells # Sodium Level 143 Potassium Level 3.9 Chloride Level 105 Carbon Dioxide 29 Level Anion Gap 9 Blood Urea 8 Nitrogen Creatinine 0.74 Est Glomerular > 60 Filtrat Rate mL/min Glucose Level 124 Hemoglobin A1c 4.8 Calcium Level 8.1 L Phosphorus Level 3.6 Magnesium Level 1.9 Total Bilirubin 0.8 Direct Bilirubin 0.00 Indirect 0.8 Bilirubin Aspartate Amino 23 Transf (AST/SGOT ) Alanine 32 Aminotransferase (ALT/SGPT) Alkaline 53 Phosphatase Total Protein 6.0 #L Albumin 3.4 # Globulin 2.60 Albumin/Globulin 1.30 Ratio Free Thyroxine 2.36 Index Thyroxine (T4) 6.4 Triiodothyronine 36.9 (T3) Uptake Medications Medication Current Medications Potassium Chloride/Dextrose/ Sod Cl 1,000 ml @ 125 mls/hr Q8H IV Last administered on 01/01/19at 03:49; Admin Dose 125 MLS/HR; Start 12/31/18 at 18:22 IV Flush (NS 3 ml) 3 ml PER PROTOCOL IV ; Start 12/31/18 at 18:30 Ondansetron HCl (Zofran Inj) 4 mg Q6H PRN IV NAUSEA/VOMITING; Start 12/31/18 at 18:30 Morphine Sulfate (morphine) 2 mg Q4H PRN IV .SEVERE PAIN 7-10; Start 12/31/18 at 18:30 Midazolam HCl 50 ml @ 1 mls/hr TITRATE IV Last administered on 01/01/19at 06:19; Admin Dose 10 MLS/HR; Start 01/01/19 at 01:00 Fentanyl 100 ml @ 2.5 mls/hr TITRATE IV Last administered on 01/01/19at 08:09; Admin Dose 17.5 MLS/HR; Start 01/01/19 at 01:00 Pantoprazole (Protonix Iv) 40 mg DAILY@06 IV ; Start 01/02/19 at 06:00 Enoxaparin Sodium (Lovenox) 30 mg DAILY SC Last administered on 01/01/19at 08:09; Admin Dose 30 MG; Start 01/01/19 at 09:00 MICHELLE PINEDA Jan 01, 2019 08:27
--- NOTE | 2019-01-01 16:12 | PN ---
Date/Time of Note Date/Time of Note DATE: 01/01/19 TIME: 16:10 Assessment/Plan VTE Prophylaxis Risk score (from Ns)>0 risk: 1 SCD applied (from Ns): Yes Pharmacological prophylaxis: heparin Lines/Catheters IV Catheter Type (from Nrs): Peripheral IV Urinary Cath still in place: Yes Reason Cath still needed: urinary retention Assessment/Plan Hospital Course Intubated, sedated RRR CTAB Soft nt nd A/P: 38 yo male who presented with acute encephelopathy likely 2/2 drug toxidrome. Urgently intubated for airway protection Acute respiratory failure: - Management of mechanical ventilation per pulmonary - Wean sedative and attempt extubation Acute encephalopathy; - Monitor mentation as toxidrome and sedatives come off Result Diagram: 01/01/19 0436 01/01/19 0436 Results 24hrs Laboratory Tests Test 12/31/18 16:11 12/31/18 16:13 12/31/18 16:23 12/31/18 16:45 White Blood 6.7 Count Red Blood Count 5.34 Hemoglobin 14.9 Hematocrit 47.3 Mean Corpuscular 88.6 Volume Mean Corpuscular 27.9 L Hemoglobin Mean Corpuscular 31.5 L Hemoglobin Melissa nt Red Cell 13.7 Distribution Width Platelet Count 245 Mean Platelet 9.5 Volume Immature 0.400 Granulocytes % Neutrophils % 48.3 Lymphocytes % 40.2 Monocytes % 9.2 Eosinophils % 1.6 Basophils % 0.3 Nucleated Red 0.0 Blood Cells % Immature 0.030 Granulocytes # Neutrophils # 3.2 Lymphocytes # 2.7 Monocytes # 0.6 Eosinophils # 0.1 Basophils # 0.0 Nucleated Red 0.0 Blood Cells # Sodium Level 145 H Potassium Level 3.7 Chloride Level 108 Carbon Dioxide 24 Level Anion Gap 13 Blood Urea 13 Nitrogen Creatinine 0.98 Est Glomerular > 60 Filtrat Rate mL/min Glucose Level 121 Calcium Level 9.5 Total Bilirubin 0.5 Direct Bilirubin 0.00 Indirect 0.5 Bilirubin Aspartate Amino 32 Transf (AST/SGOT ) Alanine 25 Aminotransferase (ALT/SGPT) Alkaline 72 Phosphatase Creatine Kinase 193 Troponin I < 0.012 Total Protein 8.2 H Albumin 4.7 Globulin 3.50 H Albumin/Globulin 1.34 Ratio Lipase 20 L Ethyl Alcohol < 10.0 H Level Acetaminophen < 10.0 L Level Blood Gas Blood arterial Specimen Source Arterial Blood 12/31/2018 5:00: Date Drawn 56 PM Arterial Blood 7.323 L pH (Temp corrected) Arterial Blood 44.2 pCO2 (Temp correct) Arterial Blood 470.1 H pO2 (Temp corrected) Arterial Blood 22.4 HCO3 Arterial Blood -3.6 L Base Excess Arterial Blood 99.6 H Oxygen Saturatio n Kevin Test ACCEPTAB Arterial Blood Right Radial Gas Puncture Site Arterial 0.3 Blood Carboxyhem oglobin Arterial Blood 0.2 Methemoglobin Blood Gas A-a O2 198.7 H Differential Oxyhemoglobin 99.1 H Percent Blood Gas 37.0 Temperature Blood Gas 20.0 Respiration Rate Blood Gas Actual 20 Respiration Rate Blood Gas VENT - AC Modality FiO2 100.0 Blood Gas Tidal 500.0 Volume Blood Gas Low 5.0 PEEP Setting Blood Gas RT Notified Whom Blood Gas 12/31/2018 5:05: Notified Time 33 PM Urine Color YELLOW Urine Clarity SLIGHTLY CLOUDY A Urine pH 5.0 Urine Specific 1.028 Sundown Urine Ketones TRACE A Urine Nitrite NEGATIVE Urine Bilirubin NEGATIVE Urine 1+ H Urobilinogen Urine Leukocyte NEGATIVE Esterase Urine 4 Microscopic RBC Urine 3 Microscopic WBC Urine Mucus MODERATE Urine Hemoglobin NEGATIVE Urine Glucose NEGATIVE Urine Total 1+ H Protein Urine Opiates Negative Screen Urine Negative Barbiturates Urine POSITIVE Amphetamines Screen Urine Negative Benzodiazepines Screen Urine Cocaine Negative Screen Urine Negative Cannabinoids Test 01/01/19 04:36 White Blood 12.0 #H Count Red Blood Count 4.74 Hemoglobin 13.2 L Hematocrit 41.6 L Mean Corpuscular 87.8 Volume Mean Corpuscular 27.8 L Hemoglobin Mean Corpuscular 31.7 L Hemoglobin Melissa nt Red Cell 13.9 Distribution Width Platelet Count 213 Mean Platelet 9.6 Volume Immature 0.300 Granulocytes % Neutrophils % 78.3 H Lymphocytes % 14.0 L Monocytes % 6.9 Eosinophils % 0.4 Basophils % 0.1 Nucleated Red 0.0 Blood Cells % Immature 0.040 H Granulocytes # Neutrophils # 9.4 H Lymphocytes # 1.7 Monocytes # 0.8 Eosinophils # 0.1 Basophils # 0.0 Nucleated Red 0.0 Blood Cells # Sodium Level 143 Potassium Level 3.9 Chloride Level 105 Carbon Dioxide 29 Level Anion Gap 9 Blood Urea 8 Nitrogen Creatinine 0.74 Est Glomerular > 60 Filtrat Rate mL/min Glucose Level 124 Hemoglobin A1c 4.8 Calcium Level 8.1 L Phosphorus Level 3.6 Magnesium Level 1.9 Total Bilirubin 0.8 Direct Bilirubin 0.00 Indirect 0.8 Bilirubin Aspartate Amino 23 Transf (AST/SGOT ) Alanine 32 Aminotransferase (ALT/SGPT) Alkaline 53 Phosphatase Total Protein 6.0 #L Albumin 3.4 # Globulin 2.60 Albumin/Globulin 1.30 Ratio Free Thyroxine 2.36 Index Thyroxine (T4) 6.4 Triiodothyronine 36.9 (T3) Uptake Subjective 24 Hr Interval Summary Free Text/Dictation remains intubated, setdated Exam/Review of Systems Exam Vitals Vital Signs Date Temp Pulse Resp B/P (MAP) Pulse Ox O2 O2 Flow FiO2 Time Delivery Rate 01/01/19 87 20 133/89 100 Mechanical 14:00 (104) Ventilator 01/01/19 98.7 12:00 01/01/19 40 08:00 Intake and Output 12/31/18 12/31/18 01/01/19 1515:00 23:00 07:00 IntakeIntake Total 1235.0 ml OutputOutput Total 1795 ml BalanceBalance -560.0 ml Results Results 24hrs Laboratory Tests Test 12/31/18 16:11 12/31/18 16:13 12/31/18 16:23 12/31/18 16:45 White Blood 6.7 Count Red Blood Count 5.34 Hemoglobin 14.9 Hematocrit 47.3 Mean Corpuscular 88.6 Volume Mean Corpuscular 27.9 L Hemoglobin Mean Corpuscular 31.5 L Hemoglobin Melissa nt Red Cell 13.7 Distribution Width Platelet Count 245 Mean Platelet 9.5 Volume Immature 0.400 Granulocytes % Neutrophils % 48.3 Lymphocytes % 40.2 Monocytes % 9.2 Eosinophils % 1.6 Basophils % 0.3 Nucleated Red 0.0 Blood Cells % Immature 0.030 Granulocytes # Neutrophils # 3.2 Lymphocytes # 2.7 Monocytes # 0.6 Eosinophils # 0.1 Basophils # 0.0 Nucleated Red 0.0 Blood Cells # Sodium Level 145 H Potassium Level 3.7 Chloride Level 108 Carbon Dioxide 24 Level Anion Gap 13 Blood Urea 13 Nitrogen Creatinine 0.98 Est Glomerular > 60 Filtrat Rate mL/min Glucose Level 121 Calcium Level 9.5 Total Bilirubin 0.5 Direct Bilirubin 0.00 Indirect 0.5 Bilirubin Aspartate Amino 32 Transf (AST/SGOT ) Alanine 25 Aminotransferase (ALT/SGPT) Alkaline 72 Phosphatase Creatine Kinase 193 Troponin I < 0.012 Total Protein 8.2 H Albumin 4.7 Globulin 3.50 H Albumin/Globulin 1.34 Ratio Lipase 20 L Ethyl Alcohol < 10.0 H Level Acetaminophen < 10.0 L Level Blood Gas Blood arterial Specimen Source Arterial Blood 12/31/2018 5:00: Date Drawn 56 PM Arterial Blood 7.323 L pH (Temp corrected) Arterial Blood 44.2 pCO2 (Temp correct) Arterial Blood 470.1 H pO2 (Temp corrected) Arterial Blood 22.4 HCO3 Arterial Blood -3.6 L Base Excess Arterial Blood 99.6 H Oxygen Saturatio n Kevin Test ACCEPTAB Arterial Blood Right Radial Gas Puncture Site Arterial 0.3 Blood Carboxyhem oglobin Arterial Blood 0.2 Methemoglobin Blood Gas A-a O2 198.7 H Differential Oxyhemoglobin 99.1 H Percent Blood Gas 37.0 Temperature Blood Gas 20.0 Respiration Rate Blood Gas Actual 20 Respiration Rate Blood Gas VENT - AC Modality FiO2 100.0 Blood Gas Tidal 500.0 Volume Blood Gas Low 5.0 PEEP Setting Blood Gas RT Notified Whom Blood Gas 12/31/2018 5:05: Notified Time 33 PM Urine Color YELLOW Urine Clarity SLIGHTLY CLOUDY A Urine pH 5.0 Urine Specific 1.028 Sundown Urine Ketones TRACE A Urine Nitrite NEGATIVE Urine Bilirubin NEGATIVE Urine 1+ H Urobilinogen Urine Leukocyte NEGATIVE Esterase Urine 4 Microscopic RBC Urine 3 Microscopic WBC Urine Mucus MODERATE Urine Hemoglobin NEGATIVE Urine Glucose NEGATIVE Urine Total 1+ H Protein Urine Opiates Negative Screen Urine Negative Barbiturates Urine POSITIVE Amphetamines Screen Urine Negative Benzodiazepines Screen Urine Cocaine Negative Screen Urine Negative Cannabinoids Test 01/01/19 04:36 White Blood 12.0 #H Count Red Blood Count 4.74 Hemoglobin 13.2 L Hematocrit 41.6 L Mean Corpuscular 87.8 Volume Mean Corpuscular 27.8 L Hemoglobin Mean Corpuscular 31.7 L Hemoglobin Melissa nt Red Cell 13.9 Distribution Width Platelet Count 213 Mean Platelet 9.6 Volume Immature 0.300 Granulocytes % Neutrophils % 78.3 H Lymphocytes % 14.0 L Monocytes % 6.9 Eosinophils % 0.4 Basophils % 0.1 Nucleated Red 0.0 Blood Cells % Immature 0.040 H Granulocytes # Neutrophils # 9.4 H Lymphocytes # 1.7 Monocytes # 0.8 Eosinophils # 0.1 Basophils # 0.0 Nucleated Red 0.0 Blood Cells # Sodium Level 143 Potassium Level 3.9 Chloride Level 105 Carbon Dioxide 29 Level Anion Gap 9 Blood Urea 8 Nitrogen Creatinine 0.74 Est Glomerular > 60 Filtrat Rate mL/min Glucose Level 124 Hemoglobin A1c 4.8 Calcium Level 8.1 L Phosphorus Level 3.6 Magnesium Level 1.9 Total Bilirubin 0.8 Direct Bilirubin 0.00 Indirect 0.8 Bilirubin Aspartate Amino 23 Transf (AST/SGOT ) Alanine 32 Aminotransferase (ALT/SGPT) Alkaline 53 Phosphatase Total Protein 6.0 #L Albumin 3.4 # Globulin 2.60 Albumin/Globulin 1.30 Ratio Free Thyroxine 2.36 Index Thyroxine (T4) 6.4 Triiodothyronine 36.9 (T3) Uptake Medications Medication Current Medications Potassium Chloride/Dextrose/ Sod Cl 1,000 ml @ 125 mls/hr Q8H IV Last administered on 01/01/19at 11:26; Admin Dose 125 MLS/HR; Start 12/31/18 at 18:22 IV Flush (NS 3 ml) 3 ml PER PROTOCOL IV ; Start 12/31/18 at 18:30 Ondansetron HCl (Zofran Inj) 4 mg Q6H PRN IV NAUSEA/VOMITING; Start 12/31/18 at 18:30 Morphine Sulfate (morphine) 2 mg Q4H PRN IV .SEVERE PAIN 7-10; Start 12/31/18 at 18:30 Midazolam HCl 50 ml @ 1 mls/hr TITRATE IV Last administered on 01/01/19at 14:34; Admin Dose 10 MLS/HR; Start 01/01/19 at 01:00 Fentanyl 100 ml @ 2.5 mls/hr TITRATE IV Last administered on 01/01/19at 13:08; Admin Dose 17.5 MLS/HR; Start 01/01/19 at 01:00 Enoxaparin Sodium (Lovenox) 30 mg DAILY SC Last administered on 01/01/19at 08:09; Admin Dose 30 MG; Start 01/01/19 at 09:00 Famotidine (Pepcid Iv) 20 mg BID IV ; Start 01/02/19 at 09:00 SREEKANTH MARCANO MD Jan 01, 2019 16:12
[2019-01-02] VITALS (71 sets, daily range): BP systolic 107–128; BP diastolic 60–85; PULSE 80–106; RESP 13–23
[2019-01-02] MEDS: MIDAZOLAM (DRIP) 50 mg/50 mL 50 ML IV SCH ×5 (00:05→22:12)
[2019-01-02] MEDS: FENTAnyl (DRIP) 1000 mcg/100mL 100 ML IV SCH ×4 (01:16→18:30)
[2019-01-02] MEDS: D5W-0.45 NACL + KCL 20 MEQ 1,000 ML IV SCH ×2 (03:57→13:29)
[2019-01-02] MEDS ORDERED: PANTOPRAZOLE 40 MG INJ IV SCH (06:00)
--- NOTE | 2019-01-02 09:10 | CONS ---
Assessment/Plan Assessment/Plan Assessment/Plan (Daily) Ventilator setting; assist control of 20, tidal volume 500, PEEP of 5, 30% FiO2. Patient is currently on Versed 10 mg/h, fentanyl 200 mics per hour. Assessment and recommendations; 1. Patient admitted with respiratory failure due to methamphetamine overdose. Currently requiring high-dose combination sedation with Versed and fentanyl. Patient exhibiting extreme agitation whenever dosage is decreased. Indicative of ongoing drug effect/withdrawal. 2. Mild leukocytosis. Difficult to rule out early aspiration. Continue current supportive care. Start Zosyn empirically at least for 24 hours . Obtain follow-up chest x-ray in 24 hours as well. If the x-ray remains clear, I would recommend stopping further antibiotic administration. Clinical status permitting, patient also would warrant a sedation vacation in 24 hours to assess mental status in order to facilitate extubation. Meanwhile start tube feeding. 35 minutes of critical care time was spent evaluating the patient. Consultation Date/Type/Reason Admit Date/Time Dec 31, 2018 at 17:56 Initial Consult Date 01/01/19 Type of Consult Pulmonary/critical care Patient is a 38-year-old male who came into the hospital with severe agitation, patient had taken methamphetamines and had to be intubated for airway protection. Patient subsequently transferred to ICU. By the time I saw him over here, patient is orally intubated and sedated. Patient has remained hemodynamically stable. Past medical history; 1. History of drug abuse. Medications; reviewed. Allergies; no known allergies. Social history; positive for drug abuse. Family history, occupational history, not available. Review of systems; unable to be obtained. General exam; young male, orally intubated, somewhat arousable. Currently in no distress. Date/Time of Note DATE: 01/02/19 TIME: 09:06 24 HR Interval Summary Free Text/Dictation Patient's condition is critical. On high-dose fentanyl and Versed drips. Patient becomes extremely agitated whenever dosage is decreased. Patient though has remained hemodynamically stable. General exam; young male, orally intubated, sedated, currently no distress. Patient appears diaphoretic. Exam/Review of Systems Exam Vitals Vital Signs Date Temp Pulse Resp B/P (MAP) Pulse Ox O2 O2 Flow FiO2 Time Delivery Rate 01/02/19 101 08:01 01/02/19 20 116/78 98 Mechanical 05:30 (91) Ventilator 01/02/19 30 05:25 01/02/19 99.2 04:00 Intake and Output 01/01/19 01/01/19 01/02/19 1515:00 23:00 07:00 IntakeIntake Total 1202.5 ml 1195.0 ml 1085 ml OutputOutput Total 290 ml 270 ml 540 ml BalanceBalance 912.5 ml 925.0 ml 545 ml Exam H EENT exam; supple neck, no JVD. No lymphadenopathy. Midline trachea. No thyromegaly. Orally intubated. Patient has good dentition. Pupils are small bilaterally. No neck masses. Chest exam; diminished but clear breath sounds. S1-S2 audible, no murmurs. Regular rhythm. Abdomen exam; soft, no organomegaly. Bowel sounds audible. Extremity exam; no peripheral edema clubbing. Pulses 2+. [employer] exam; patient is sedated. Results Result Diagram: 01/01/1943501/01/19435 Medications Medication Current Medications Potassium Chloride/Dextrose/ Sod Cl 1,000 ml @ 125 mls/hr Q8H IV Last administered on 01/02/19at 03:57; Admin Dose 125 MLS/HR; Start 12/31/18 at 18:22 IV Flush (NS 3 ml) 3 ml PER PROTOCOL IV ; Start 12/31/18 at 18:30 Ondansetron HCl (Zofran Inj) 4 mg Q6H PRN IV NAUSEA/VOMITING; Start 12/31/18 at 18:30 Morphine Sulfate (morphine) 2 mg Q4H PRN IV .SEVERE PAIN 7-10; Start 12/31/18 at 18:30 Midazolam HCl 50 ml @ 1 mls/hr TITRATE IV Last administered on 01/02/19at 05:09; Admin Dose 10 MLS/HR; Start 01/01/19 at 01:00 Fentanyl 100 ml @ 2.5 mls/hr TITRATE IV Last administered on 01/02/19at 06:46; Admin Dose 20 MLS/HR; Start 01/01/19 at 01:00 Enoxaparin Sodium (Lovenox) 30 mg DAILY SC Last administered on 01/01/19at 08:09; Admin Dose 30 MG; Start 01/01/19 at 09:00 Famotidine (Pepcid Iv) 20 mg BID IV ; Start 01/02/19 at 09:00 MICHELLE PINEDA Jan 02, 2019 09:10
[2019-01-02] MEDS: FAMOTIDINE 20 MG INJ IV SCH ×2 (10:32→21:44)
[2019-01-02] MEDS: morphine 2 MG INJ IV PRN ×2 (10:32→16:57)
[2019-01-02] MEDS: ENOXAPARIN 30 MG/0.3 ML SYG SC SCH (10:38)
[2019-01-02] MEDS: PIPER-TAZO 3.375 GM IV (PMX) 100 ML IVPB SCH ×2 (15:06→21:44)
--- NOTE | 2019-01-02 15:14 | PN ---
Date/Time of Note Date/Time of Note DATE: 01/02/19 TIME: 15:12 Assessment/Plan VTE Prophylaxis Risk score (from Ns)>0 risk: 3 SCD applied (from Ns): Yes Pharmacological prophylaxis: heparin Lines/Catheters IV Catheter Type (from Nrs): Peripheral IV Urinary Cath still in place: Yes Reason Cath still needed: urinary retention Assessment/Plan Hospital Course Intubated, sedated RRR CTAB Soft nt nd A/P: 38 yo male with HIV who presented with acute encephelopathy likely 2/2 drug toxidrome. Urgently intubated for airway protection Acute respiratory failure: - Management of mechanical ventilation per pulmonary - Wean sedative and attempt extubation Acute encephalopathy; - Monitor mentation as toxidrome and sedatives come off HIV: - Further management when stable - CD4 > 1000, no concern for aids defining infection now Result Diagram: 01/02/1950 01/02/19 0951 Results 24hrs Laboratory Tests Test 01/02/19 09:51 White Blood Count 7.7 # Red Blood Count 4.48 L Hemoglobin 12.3 L Hematocrit 39.8 L Mean Corpuscular Volume 88.8 Mean Corpuscular Hemoglobin 27.5 L Mean Corpuscular Hemoglobin Concent 30.9 L Red Cell Distribution Width 14.3 Platelet Count 189 Mean Platelet Volume 9.5 Immature Granulocytes % 0.300 Neutrophils % 59.3 Lymphocytes % 26.2 Monocytes % 12.6 H Eosinophils % 1.3 Basophils % 0.3 Nucleated Red Blood Cells % 0.0 Immature Granulocytes # 0.020 Neutrophils # 4.6 Lymphocytes # 2.0 Monocytes # 1.0 H Eosinophils # 0.1 Basophils # 0.0 Nucleated Red Blood Cells # 0.0 Sodium Level 134 L Potassium Level 4.3 Chloride Level 103 Carbon Dioxide Level 27 Anion Gap 4 L Blood Urea Nitrogen 9 Creatinine 0.87 Est Glomerular Filtrat Rate mL/min > 60 Glucose Level 97 Calcium Level 8.2 L Total Bilirubin 1.0 Direct Bilirubin 0.00 Indirect Bilirubin 1.0 Aspartate Amino Transf (AST/SGOT) 22 Alanine Aminotransferase (ALT/SGPT) 26 Alkaline Phosphatase 47 Total Protein 6.0 L Albumin 3.1 L Globulin 2.90 Albumin/Globulin Ratio 1.06 Subjective 24 Hr Interval Summary Free Text/Dictation Remains intubated and sedated Exam/Review of Systems Exam Vitals Vital Signs Date Temp Pulse Resp B/P (MAP) Pulse Ox O2 O2 Flow FiO2 Time Delivery Rate 01/02/19 84 12:01 01/02/19 20 116/78 98 Mechanical 05:30 (91) Ventilator 01/02/19 30 05:25 01/02/19 99.2 04:00 Intake and Output 01/01/19 01/01/19 01/02/19 1515:00 23:00 07:00 IntakeIntake Total 1202.5 ml 1195.0 ml 1085 ml OutputOutput Total 290 ml 270 ml 540 ml BalanceBalance 912.5 ml 925.0 ml 545 ml Results Results 24hrs Laboratory Tests Test 01/02/19 09:51 White Blood Count 7.7 # Red Blood Count 4.48 L Hemoglobin 12.3 L Hematocrit 39.8 L Mean Corpuscular Volume 88.8 Mean Corpuscular Hemoglobin 27.5 L Mean Corpuscular Hemoglobin Concent 30.9 L Red Cell Distribution Width 14.3 Platelet Count 189 Mean Platelet Volume 9.5 Immature Granulocytes % 0.300 Neutrophils % 59.3 Lymphocytes % 26.2 Monocytes % 12.6 H Eosinophils % 1.3 Basophils % 0.3 Nucleated Red Blood Cells % 0.0 Immature Granulocytes # 0.020 Neutrophils # 4.6 Lymphocytes # 2.0 Monocytes # 1.0 H Eosinophils # 0.1 Basophils # 0.0 Nucleated Red Blood Cells # 0.0 Sodium Level 134 L Potassium Level 4.3 Chloride Level 103 Carbon Dioxide Level 27 Anion Gap 4 L Blood Urea Nitrogen 9 Creatinine 0.87 Est Glomerular Filtrat Rate mL/min > 60 Glucose Level 97 Calcium Level 8.2 L Total Bilirubin 1.0 Direct Bilirubin 0.00 Indirect Bilirubin 1.0 Aspartate Amino Transf (AST/SGOT) 22 Alanine Aminotransferase (ALT/SGPT) 26 Alkaline Phosphatase 47 Total Protein 6.0 L Albumin 3.1 L Globulin 2.90 Albumin/Globulin Ratio 1.06 Medications Medication Current Medications Potassium Chloride/Dextrose/ Sod Cl 1,000 ml @ 125 mls/hr Q8H IV Last administered on 01/02/19at 13:29; Admin Dose 125 MLS/HR; Start 12/31/18 at 18:22 IV Flush (NS 3 ml) 3 ml PER PROTOCOL IV ; Start 12/31/18 at 18:30 Ondansetron HCl (Zofran Inj) 4 mg Q6H PRN IV NAUSEA/VOMITING; Start 12/31/18 at 18:30 Morphine Sulfate (morphine) 2 mg Q4H PRN IV .SEVERE PAIN 7-10 Last administered on 01/02/19 10:32; Admin Dose 2 MG; Start 12/31/18 at 18:30 Midazolam HCl 50 ml @ 1 mls/hr TITRATE IV Last administered on 01/02/19 11:45; Admin Dose 1 MLS/HR; Start 01/01/19 at 01:00 Fentanyl 100 ml @ 2.5 mls/hr TITRATE IV Last administered on 01/02/19 11:56; Admin Dose 2.5 MLS/HR; Start 01/01/19 at 01:00 Enoxaparin Sodium (Lovenox) 30 mg DAILY SC Last administered on 01/02/19 10:38; Admin Dose 30 MG; Start 01/01/19 at 09:00 Famotidine (Pepcid Iv) 20 mg BID IV Last administered on 01/02/19 10:32; Admin Dose 20 MG; Start 01/02/19 at 09:00 Piperacillin Sod/ Tazobactam Sod 100 ml @ 200 mls/hr Q8 IVPB Last administered on 01/02/19 15:06; Admin Dose 200 MLS/HR; Start 01/02/19 at 14:00 SREEKANTH MARCANO MD Jan 02, 2019 15:14
[2019-01-03] VITALS (74 sets, daily range): BP systolic 77–118; BP diastolic 52–89; PULSE 66–94; RESP 14–26
[2019-01-03] MEDS: FENTAnyl (DRIP) 1000 mcg/100mL 100 ML IV SCH ×3 (02:11→21:10)
[2019-01-03] MEDS: D5W-0.45 NACL + KCL 20 MEQ 1,000 ML IV SCH ×2 (02:55→10:42)
[2019-01-03] MEDS: MIDAZOLAM (DRIP) 50 mg/50 mL 50 ML IV SCH ×2 (02:55→12:20)
[2019-01-03] MEDS: PIPER-TAZO 3.375 GM IV (PMX) 100 ML IVPB SCH ×3 (06:19→21:04)
[2019-01-03] MEDS: morphine 2 MG INJ IV PRN (08:04)
[2019-01-03] MEDS: ENOXAPARIN 30 MG/0.3 ML SYG SC SCH (09:05)
[2019-01-03] MEDS ORDERED: DEXMEDETOMIDINE IN DEXTROSE 5% 50 ML IV STA (09:48)
[2019-01-03] MEDS: FAMOTIDINE 20 MG INJ IV SCH ×2 (10:41→21:04)
--- NOTE | 2019-01-03 11:26 | CONS ---
Consult Date/Type/Reason Admit Date/Time Dec 31, 2018 at 17:56 Initial Consult Date 01/01/19 Type of Consult Pulmonary Date/Time of Note DATE: 01/03/19 TIME: 11:25 Subjective Continues mechanical ventilation remains intermittently agitated. Objective Vital Signs Date Temp Pulse Resp B/P (MAP) Pulse Ox O2 O2 Flow FiO2 Time Delivery Rate 01/03/19 82 20 112/70 100 09:00 (84) 01/03/19 100.3 08:00 01/03/19 30 07:50 01/02/19 Mechan[employer] 08:00 l Ventilato r Intake and Output 01/02/19 01/02/19 01/03/19 1515:00 23:00 07:00 IntakeIntake Total 1240 ml 1440 ml 855 ml OutputOutput Total 870 ml 640 ml 480 ml BalanceBalance 370 ml 800 ml 375 ml Exam GENERAL: Well-nourished well-developed gentleman orally intubated VITAL SIGNS: per chart NECK: Supple. No JVD or lymphadenopathy. CARDIAC EXAM: S1, S2. No added sounds or murmurs. CHEST: clear bilaterally, No added sounds, rales or wheezes ABDOMEN: Soft, nontender. No guarding or rebound. EXTREMITIES: No cyanosis, clubbing or edema. NEUROLOGIC: Generalized weakness. No focal deficits. Vent Setting Ventilator Support Mode: AC Fraction of Inspired Oxygen pe: 30 Positive End Expiratory Pressu: 5.0 Results/Medications Result Diagram: 01/02/1995001/02/19 0951 Medications Current Medications Potassium Chloride/Dextrose/ Sod Cl 1,000 ml @ 125 mls/hr Q8H IV Last adminis tered on 01/03/19at 10:42; Admin Dose 125 MLS/HR; Start 12/31/18 at 18:22 IV Flush (NS 3 ml) 3 ml PER PROTOCOL IV ; Start 12/31/18 at 18:30 Ondansetron HCl (Zofran Inj) 4 mg Q6H PRN IV NAUSEA/VOMITING; Start 12/31/18 at 18:30 Morphine Sulfate (morphine) 2 mg Q4H PRN IV .SEVERE PAIN 7-10 Last administered on 01/03/19at 08:04; Admin Dose 2 MG; Start 12/31/18 at 18:30 Midazolam HCl 50 ml @ 1 mls/hr TITRATE IV Last administered on 01/03/19at 02:55; Admin Dose 10 MLS/HR; Start 01/01/19 at 01:00 Fentanyl 100 ml @ 2.5 mls/hr TITRATE IV Last administered on 01/03/19at 02:11; Admin Dose 20 MLS/HR; Start 01/01/19 at 01:00 Enoxaparin Sodium (Lovenox) 30 mg DAILY SC Last administered on 01/03/19at 09:0 5; Admin Dose 30 MG; Start 01/01/19 at 09:00 Famotidine (Pepcid Iv) 20 mg BID IV Last administered on 01/03/19at 10:41; Admin Dose 20 MG; Start 01/02/19 at 09:00 Piperacillin Sod/ Tazobactam Sod 100 ml @ 200 mls/hr Q8 IVPB Last administered on 01/03/19at 06:19; Admin Dose 200 MLS/HR; Start 01/02/19 at 14:00 Assessment/Plan Hospital Course (Demo Recall) Assessment 1. Polysubstance abuse with subsequent intubation for airway protection 2. Incomplete data Plan 1. Continue mechanical ventilation, weaning trial once patient following commands 2. Trial of Precedex decrease sedation as tolerated 3. Initiate tube feeding if patient fails weaning trial today Critical care time 40 minutes WANDA GRACE MD, [facility] Jan 03, 2019 11:26
--- NOTE | 2019-01-03 13:53 | PN ---
Date/Time of Note Date/Time of Note DATE: 01/03/19 TIME: 13:53 Assessment/Plan VTE Prophylaxis Risk score (from Ns)>0 risk: 3 SCD applied (from Ns): Yes Pharmacological prophylaxis: heparin Lines/Catheters IV Catheter Type (from Nrsg): Peripheral IV Urinary Cath still in place: Yes Reason Cath still needed: urinary retention Assessment/Plan Hospital Course Intubated, sedated RRR CTAB Soft nt nd A/P: 38 yo male with HIV who presented with acute encephelopathy likely 2/2 drug toxidrome. Urgently intubated for airway protection Acute respiratory failure: - Management of mechanical ventilation per pulmonary - Wean sedative and attempt extubation Acute encephalopathy; - Monitor mentation as toxidrome and sedatives come off Aspiration pneumoina: - Continue zosyn HIV: - Further management when stable - CD4 > 1000, no concern for aids defining infection now Result Diagram: 01/02/19 0951 01/02/19 0951 Subjective 24 Hr Interval Summary Free Text/Dictation Started on zosyn for possible aspiration pneumonia on XR Remains intubated, heavily sedated Exam/Review of Systems Exam Vitals Vital Signs Date Temp Pulse Resp B/P (MAP) Pulse Ox O2 O2 Flow FiO2 Time Delivery Rate 01/03/19 78 20 108/69 12:30 (82) 01/03/19 100 10:15 01/03/19 98.9 10:00 01/03/19 30 07:50 01/02/19 Mechanical 08:00 Ventilator Intake and Output 01/02/19 01/02/19 01/03/19 1515:00 23:00 07:00 IntakeIntake Total 1240 ml 1440 ml 855 ml OutputOutput Total 870 ml 640 ml 480 ml BalanceBalance 370 ml 800 ml 375 ml Medications Medication Current Medications Potassium Chloride/Dextrose/ Sod Cl 1,000 ml @ 125 mls/hr Q8H IV Last administered on 01/03/19at 10:42; Admin Dose 125 MLS/HR; Start 12/31/18 at 18:22 IV Flush (NS 3 ml) 3 ml PER PROTOCOL IV ; Start 12/31/18 at 18:30 Ondansetron HCl (Zofran Inj) 4 mg Q6H PRN IV NAUSEA/VOMITING; Start 12/31/18 at 18:30 Morphine Sulfate (morphine) 2 mg Q4H PRN IV .SEVERE PAIN 7-10 Last administered on 01/03/19 08:04; Admin Dose 2 MG; Start 12/31/18 at 18:30 Midazolam HCl 50 ml @ 1 mls/hr TITRATE IV Last administered on 01/03/19 12:20; Admin Dose 20 MLS/HR; Start 01/01/19 at 01:00 Fentanyl 100 ml @ 2.5 mls/hr TITRATE IV Last administered on 01/03/19 11:36; Admin Dose 20 MLS/HR; Start 01/01/19 at 01:00 Enoxaparin Sodium (Lovenox) 30 mg DAILY SC Last administered on 01/03/19 09:05; Admin Dose 30 MG; Start 01/01/19 at 09:00 Famotidine (Pepcid Iv) 20 mg BID IV Last administered on 01/03/19 10:41; Admin Dose 20 MG; Start 01/02/19 at 09:00 Piperacillin Sod/ Tazobactam Sod 100 ml @ 200 mls/hr Q8 IVPB Last administered on 01/03/19 13:40; Admin Dose 200 MLS/HR; Start 01/02/19 at 14:00 SREEKANTH MARCANO MD Jan 03, 2019 13:53
[2019-01-04] VITALS (42 sets, daily range): BP systolic 88–149; BP diastolic 50–115; PULSE 64–104; RESP 16–25
[2019-01-04] MEDS: DEXMEDETOMIDINE IN DEXTROSE 5% 50 ML IV SCH ×2 (00:05→09:48)
[2019-01-04] MEDS: FENTAnyl (DRIP) 1000 mcg/100mL 100 ML IV SCH ×2 (02:58→08:30)
[2019-01-04] MEDS: PIPER-TAZO 3.375 GM IV (PMX) 100 ML IVPB SCH ×3 (05:05→22:44)
[2019-01-04] MEDS: FAMOTIDINE 20 MG INJ IV SCH ×2 (08:49→21:16)
[2019-01-04] MEDS: ENOXAPARIN 30 MG/0.3 ML SYG SC SCH (08:51)
--- NOTE | 2019-01-04 09:57 | CONS ---
Consult Date/Type/Reason Admit Date/Time Dec 31, 2018 at 17:56 Initial Consult Date 01/01/19 Type of Consult Pulmonary Date/Time of Note DATE: 01/04/19 TIME: 09:57 Subjective Patient continues Precedex and fentanyl significant agitation. Tolerating CPAP weaning trial this morning. Objective Vital Signs Date Temp Pulse Resp B/P (MAP) Pulse Ox O2 O2 Flow FiO2 Time Delivery Rate 01/04/19 69 20 100/60 97 08:00 (73) 01/04/19 30 05:30 01/04/19 99.0 04:00 01/02/19 Mechanical 08:00 Ventilator Intake and Output 01/03/19 01/03/19 01/04/19 1515:00 23:00 07:00 IntakeIntake Total 1493.55 ml 860 ml 110 ml OutputOutput Total 940 ml 1175 ml 250 ml BalanceBalance 553.55 ml -315 ml -140 ml Exam GENERAL: Well-nourished well-developed gentleman orally intubated VITAL SIGNS: per chart NECK: Supple. No JVD or lymphadenopathy. CARDIAC EXAM: S1, S2. No added sounds or murmurs. CHEST: clear bilaterally, No added sounds, rales or wheezes ABDOMEN: Soft, nontender. No guarding or rebound. EXTREMITIES: No cyanosis, clubbing or edema. NEUROLOGIC: Generalized weakness. No focal deficits. Vent Setting Ventilator Support Mode: AC Fraction of Inspired Oxygen pe: 30 Positive End Expiratory Pressu: 5.0 Results/Medications Result Diagram: 01/04/19 0500 01/04/19 0500 Results 24 hrs Laboratory Tests Test 01/04/19 05:00 White Blood Count 6.6 Red Blood Count 4.22 L Hemoglobin 11.6 L Hematocrit 36.5 L Mean Corpuscular Volume 86.5 Mean Corpuscular Hemoglobin 27.5 L Mean Corpuscular Hemoglobin Concent 31.8 L Red Cell Distribution Width 13.7 Platelet Count 196 Mean Platelet Volume 10.0 Immature Granulocytes % 0.300 Neutrophils % 56.1 Lymphocytes % 26.8 Monocytes % 15.3 H Eosinophils % 1.2 Basophils % 0.3 Nucleated Red Blood Cells % 0.0 Immature Granulocytes # 0.020 Neutrophils # 3.7 Lymphocytes # 1.8 Monocytes # 1.0 H Eosinophils # 0.1 Basophils # 0.0 Nucleated Red Blood Cells # 0.0 Sodium Level 139 Potassium Level 4.4 Chloride Level 101 Carbon Dioxide Level 29 Anion Gap 9 # Blood Urea Nitrogen 10 Creatinine 1.00 Est Glomerular Filtrat Rate mL/min > 60 Glucose Level 103 Calcium Level 8.7 Phosphorus Level 4.8 Magnesium Level 1.9 Medications Current Medications IV Flush (NS 3 ml) 3 ml PER PROTOCOL IV ; Start 12/31/18 at 18:30 Ondansetron HCl (Zofran Inj) 4 mg Q6H PRN IV NAUSEA/VOMITING; Start 12/31/18 at 18:30 Morphine Sulfate (morphine) 2 mg Q4H PRN IV .SEVERE PAIN 7-10 Last administered on 01/03/19 08:04; Admin Dose 2 MG; Start 12/31/18 at 18:30 Midazolam HCl 50 ml @ 1 mls/hr TITRATE IV Last administered on 01/03/19 12:20; Admin Dose 20 MLS/HR; Start 01/01/19 at 01:00 Fentanyl 100 ml @ 2.5 mls/hr TITRATE IV Last administered on 01/04/19 08:30; Admin Dose 20 MLS/HR; Start 01/01/19 at 01:00 Enoxaparin Sodium (Lovenox) 30 mg DAILY SC Last administered on 01/04/19 08:51; Admin Dose 30 MG; Start 01/01/19 at 09:00 Famotidine (Pepcid Iv) 20 mg BID IV Last administered on 01/04/19 08:49; Admin Dose 20 MG; Start 01/02/19 at 09:00 Piperacillin Sod/ Tazobactam Sod 100 ml @ 200 mls/hr Q8 IVPB Last administered on 01/04/19 05:05; Admin Dose 200 MLS/HR; Start 01/02/19 at 14:00 Assessment/Plan Hospital Course (Demo Recall) Assessment 1. Polysubstance abuse with subsequent intubation for airway protection 2. Incomplete data Plan 1. Continue mechanical ventilation, weaning trial once patient following commands, anticipate extubation today 2. Trial of Precedex decrease sedation as tolerated Critical care time 40 minutes WANDA GRACE MD, [facility] Jan 04, 2019 09:57
--- NOTE | 2019-01-04 15:54 | PN ---
Date/Time of Note Date/Time of Note DATE: 01/04/19 TIME: 15:53 Assessment/Plan VTE Prophylaxis Risk score (from Nsg)>0 risk: 3 SCD applied (from Nsg): Yes Pharmacological prophylaxis: heparin Lines/Catheters IV Catheter Type (from Nrsg): Saline Lock Urinary Cath still in place: Yes Reason Cath still needed: urinary retention Assessment/Plan Hospital Course Comfortable CN I-XII in tact Spontaneous movements x4 RRR CTAB Soft nt nd A/P: 38 yo male with HIV who presented with acute encephelopathy likely 2/2 drug toxidrome. Urgently intubated for airway protection Acute respiratory failure: - Extubated Acute encephalopathy; - Suspect toxidrome. Monitor as sedatives come off Aspiration pneumoina: - Continue zosyn HIV: - Further management when stable - CD4 > 1000, no concern for aids defining infection now Result Diagram: 01/04/19 0500 01/04/19 0500 Results 24hrs Laboratory Tests Test 01/04/19 05:00 01/04/19 10:01 White Blood Count 6.6 Red Blood Count 4.22 L Hemoglobin 11.6 L Hematocrit 36.5 L Mean Corpuscular Volume 86.5 Mean Corpuscular Hemoglobin 27.5 L Mean Corpuscular Hemoglobin Concent 31.8 L Red Cell Distribution Width 13.7 Platelet Count 196 Mean Platelet Volume 10.0 Immature Granulocytes % 0.300 Neutrophils % 56.1 Lymphocytes % 26.8 Monocytes % 15.3 H Eosinophils % 1.2 Basophils % 0.3 Nucleated Red Blood Cells % 0.0 Immature Granulocytes # 0.020 Neutrophils # 3.7 Lymphocytes # 1.8 Monocytes # 1.0 H Eosinophils # 0.1 Basophils # 0.0 Nucleated Red Blood Cells # 0.0 Sodium Level 139 Potassium Level 4.4 Chloride Level 101 Carbon Dioxide Level 29 Anion Gap 9 # Blood Urea Nitrogen 10 Creatinine 1.00 Est Glomerular Filtrat Rate mL/min > 60 Glucose Level 103 Calcium Level 8.7 Phosphorus Level 4.8 Magnesium Level 1.9 Blood Gas Specimen Source Blood arterial Arterial Blood Date Drawn 01/04/2019 10:03:41 AM Arterial Blood pH (Temp corrected) 7.399 Arterial Blood pCO2 (Temp correct) 44.9 Arterial Blood pO2 (Temp corrected) 113.0 H Arterial Blood HCO3 27.1 H Arterial Blood Base Excess 1.9 Arterial Blood Oxygen Saturation 98.1 H Kevin Test ACCEPTAB Arterial Blood Gas Puncture Site Right Radial Arterial Blood Carboxyhemoglobin 0.5 Arterial Blood Methemoglobin 0.1 Blood Gas A-a O2 Differential 48.1 H Oxyhemoglobin Percent 97.5 Blood Gas Temperature 37.0 Blood Gas Actual Respiration Rate 15 Blood Gas Modality VENT - CPAP FiO2 30.0 Blood Gas Low PEEP Setting 5.0 Blood Gas Pressure Support 10 Blood Gas Notified Whom M.D. Blood Gas Notified Time 01/04/2019 10:13:14 AM Subjective 24 Hr Interval Summary Free Text/Dictation Patient extubated Doing well on RA Very sleepy Can't remember any events prior to arrival Exam/Review of Systems Exam Vitals Vital Signs Date Temp Pulse Resp B/P (MAP) Pulse Ox O2 O2 Flow FiO2 Time Delivery Rate 01/04/19 90 19 107/56 100 Room Air 15:00 (73) 01/04/19 98.2 2.0 12:00 01/04/19 30 09:40 Intake and Output 01/03/19 01/03/19 01/04/19 1515:00 23:00 07:00 IntakeIntake Total 1493.55 ml 880 ml 120 ml OutputOutput Total 940 ml 1175 ml 250 ml BalanceBalance 553.55 ml -295 ml -130 ml Results Results 24hrs Laboratory Tests Test 01/04/19 05:00 01/04/19 10:01 White Blood Count 6.6 Red Blood Count 4.22 L Hemoglobin 11.6 L Hematocrit 36.5 L Mean Corpuscular Volume 86.5 Mean Corpuscular Hemoglobin 27.5 L Mean Corpuscular Hemoglobin Concent 31.8 L Red Cell Distribution Width 13.7 Platelet Count 196 Mean Platelet Volume 10.0 Immature Granulocytes % 0.300 Neutrophils % 56.1 Lymphocytes % 26.8 Monocytes % 15.3 H Eosinophils % 1.2 Basophils % 0.3 Nucleated Red Blood Cells % 0.0 Immature Granulocytes # 0.020 Neutrophils # 3.7 Lymphocytes # 1.8 Monocytes # 1.0 H Eosinophils # 0.1 Basophils # 0.0 Nucleated Red Blood Cells # 0.0 Sodium Level 139 Potassium Level 4.4 Chloride Level 101 Carbon Dioxide Level 29 Anion Gap 9 # Blood Urea Nitrogen 10 Creatinine 1.00 Est Glomerular Filtrat Rate mL/min > 60 Glucose Level 103 Calcium Level 8.7 Phosphorus Level 4.8 Magnesium Level 1.9 Blood Gas Specimen Source Blood arterial Arterial Blood Date Drawn 01/04/2019 10:03:41 AM Arterial Blood pH (Temp corrected) 7.399 Arterial Blood pCO2 (Temp correct) 44.9 Arterial Blood pO2 (Temp corrected) 113.0 H Arterial Blood HCO3 27.1 H Arterial Blood Base Excess 1.9 Arterial Blood Oxygen Saturation 98.1 H Kevin Test ACCEPTAB Arterial Blood Gas Puncture Site Right Radial Arterial Blood Carboxyhemoglobin 0.5 Arterial Blood Methemoglobin 0.1 Blood Gas A-a O2 Differential 48.1 H Oxyhemoglobin Percent 97.5 Blood Gas Temperature 37.0 Blood Gas Actual Respiration Rate 15 Blood Gas Modality VENT - CPAP FiO2 30.0 Blood Gas Low PEEP Setting 5.0 Blood Gas Pressure Support 10 Blood Gas Notified Whom M.D. Blood Gas Notified Time 01/04/2019 10:13:14 AM Medications Medication Current Medications IV Flush (NS 3 ml) 3 ml PER PROTOCOL IV ; Start 12/31/18 at 18:30 Ondansetron HCl (Zofran Inj) 4 mg Q6H PRN IV NAUSEA/VOMITING; Start 12/31/18 at 18:30 Morphine Sulfate (morphine) 2 mg Q4H PRN IV .SEVERE PAIN 7-10 Last administered on 01/03/19 08:04; Admin Dose 2 MG; Start 12/31/18 at 18:30 Midazolam HCl 50 ml @ 1 mls/hr TITRATE IV Last administered on 01/03/19 12:20; Admin Dose 20 MLS/HR; Start 01/01/19 at 01:00 Fentanyl 100 ml @ 2.5 mls/hr TITRATE IV Last administered on 01/04/19 08:30; Admin Dose 20 MLS/HR; Start 01/01/19 at 01:00 Enoxaparin Sodium (Lovenox) 30 mg DAILY SC Last administered on 01/04/19 08:51; Admin Dose 30 MG; Start 01/01/19 at 09:00 Famotidine (Pepcid Iv) 20 mg BID IV Last administered on 01/04/19 08:49; Admin Dose 20 MG; Start 01/02/19 at 09:00 Piperacillin Sod/ Tazobactam Sod 100 ml @ 200 mls/hr Q8 IVPB Last administered on 6/25/19at 14:09; Admin Dose 200 MLS/HR; Start 01/02/19 at 14:00 SREEKANTH MARCANO MD Jan 04, 2019 15:54
[2019-01-05] MEDS: PIPER-TAZO 3.375 GM IV (PMX) 100 ML IVPB SCH (05:40)
[2019-01-05] MEDS ORDERED: LORAZEPAM 2 MG INJ IV ONE (06:30)
[2019-01-05 07:48] VITALS: BP 129/79; PULSE 90; RESP 19
[2019-01-05] MEDS: FAMOTIDINE 20 MG INJ IV SCH (08:50)
[2019-01-05] MEDS: ENOXAPARIN 30 MG/0.3 ML SYG SC SCH (08:56)
--- NOTE | 2019-01-05 15:12 | DS ---
Date/Time of Note Date/Time of Note DATE: 01/05/19 TIME: 15:11 Discharge Summary Admission/Discharge Info Admit Date/Time Dec 31, 2018 at 17:56 Discharge Date/Time Jan 05, 2019 at 11:45 Discharge Diagnosis Overdose Acute respiratory failure Patient Condition: Stable Hospital Course Patient presented with acute encephelopathy and respiratoyr failure 2/[address] He was emergently intubated. Kept on mechanical ventilation for two days as toxidrome resolved. He was extubed to room air. He was ambulating normally and had not symptoms. Requested discharge. Advised to avoid drugs. Continue ARVs Home Meds Unable to Obtain Active Prescriptions or Reported Meds Primary Care Provider Not On Staff Doctor SREEKANTH MARCANO MD Jan 05, 2019 15:12
== END 2019-01-05 11:45 | disposition home or self-care (01) | DRG 917 ==
LOC: E/R 15:43 → ICU 17:56 → MS1 01-04 21:52
PROVIDERS: ADMIT Internal Medicine; ATTEND Internal Medicine
PROC: 5A1945Z Respiratory Ventilation, 24-96 Consecutive Hours (ICD-10-PCS; principal; 2018-12-31)
PROC: 0BH17EZ Insertion of Endotracheal Airway into Trachea, Via Natural or Artificial Opening (ICD-10-PCS; 2018-12-31)
DX: T43.621A Poisoning by amphetamines, accidental (unintentional), initial encounter (principal); J69.0 Pneumonitis due to inhalation of food and vomit; G92 Toxic encephalopathy; J96.02 Acute respiratory failure with hypercapnia; J96.01 Acute respiratory failure with hypoxia; E87.0 Hyperosmolality and hypernatremia; I10 Essential (primary) hypertension; E86.0 Dehydration
CPT/HCPCS: 31500; 36415; 36600; 70450; 71045; 80048; 80053; 80307; 81001; 82550; 82803; 83036; 83690; 83735; 84100; 84436; 84479; 84484; 85025; 87081; 93005; 94002; 94003; 94760; 94770; 96365; 96368; 96375; J0696; J1650; J2060; J2250; J2270; J2543; J3010; J3475; J3480; J7030; J7120

== ENCOUNTER 2019-01-10 16:02 | Emergency (ER) | payer BC ==
[~2019-01-10] VITALS: Ht 182.9 cm; Wt 85.0 kg
[2019-01-10] MEDS ORDERED: SOD CHLORIDE 0.9% 1,000 ML IV STA (16:04)
[2019-01-10 16:07] VITALS: Ht 182.9 cm; Wt 85.0 kg
--- NOTE | 2019-01-10 16:20 | ERD ---
ER Documentation Chief Complaint Chief Complaint BIBA C/O HALLUCINATIONS, ADMITS TO TAKING DRUGS LAST NIGHT HPI This is a 39-year-old male who is currently homeless and states that he presents to the emergency department today complaining of hallucinations. He states he is seeing people that are not there. He is also hearing things. He denies any suicidal homicidal thoughts or ideations. The patient did indicate that 3 hours prior to the onset of his symptoms he injected crystal meth intravenously. The patient states he has used crystal in the past but smokes it and never injected it. The patient had been recently discharged from [facility] on January 05, 2019 roughly 1 week ago after he been intubated for GHB overdose. The patient denies any coingestions today. He denies any chest pain. No palpitations. No shortness of breath. No hemoptysis no hematemesis no melanotic stools. ROS All systems reviewed and are negative except as per history of present illness. Medications Home Meds Reported Medications Lansoprazole* (Lansoprazole*) 15 Mg Capsule.dr, 15 MG PO DAILY, CAP 01/10/19 [Biktarvy] No Conflict Check, 1 TAB PO DAILY BIKTARVY 50MG/200MG/25MG. 01/10/19 Multivitamins* (Theragran*) 1 Tab Tab, 1 TAB PO DAILY, TAB 01/10/19 Bupropion Hcl* (Wellbutrin XL*) 300 Mg Tab.sr.24h, 300 MG PO DAILY, TAB.SA 01/10/19 Allergies Allergies: Coded Allergies: No Known Drug Allergy (Verified Allergy, Unknown, 01/10/19) PMhx/Soc History of Surgery: No Anesthesia Reaction: No Hx Neurological Disorder: Yes (Seizure) Hx Respiratory Disorders: No Hx Cardiac Disorders: No Hx Psychiatric Problems: No Hx Miscellaneous Medical Probl: Yes (HIV POSITIVE , TOBACCO USE, ILLICIT DRUG USE .) Hx Alcohol Use: Yes Hx Substance Use: Yes Hx Tobacco Use: Yes Physical Exam Vitals Vital Signs Date Temp Pulse Resp B/P (MAP) Pulse Ox O2 O2 Flow FiO2 Time Delivery Rate 01/10/19 106 22 153/97 99 Room Air 21:36 (115) 01/10/19 100 22 146/91 100 Room Air 20:16 (109) 01/10/19 98.1 99 26 160/113 100 Room Air 18:45 (129) 01/10/19 98.6 106 16 140/85 100 16:07 (103) Physical Exam Constitutional:Well-developed. Well-nourished. HEENT:Normocephalic. Atraumatic.Pupils were 4 mm equal round reactive to light. Moist mucous membranes.No tonsillar exudates. Neck: No nuchal rigidity. No lymphadenopathy. No posterior cervical spine tenderness or step-offs. Respiratory: Not using accessory muscles of respiration.Lungs were clear to auscultation bilaterally. No rhonchi. No rales. No wheezing. Cardiovascular: Tachycardic with regular rhythm.No murmurs. No rubs were appreciated.S1, S2 normal. Distal pulses are palpable 2+ bilaterally. GI: Abdomen was soft. Nontender. Non Distended. No pulsatile abdominal masses or bruits. No rebound. No guarding. Bowel sounds were present and normal. Muscle skeletal: Full range of motion of both the upper and lower extremities bilaterally.Normal muscle tone.No assymetrical calf tenderness or swelling. Skin: No petechia, no purpura. No lesions on the palms or the soles of the feet. No maculopapular rash. NEURO: Patient was alert, awake, orientated x3.No facial droop. Gait observed and normal with no ataxia.Speech had regular rate and rhythm. No focal neurological deficits. PSYCH: No suicidal homicidal thoughts or ideations. Visual and auditory hallucinations with no tactile hallucinations. Result Diagram: 01/10/19 1630 01/10/19 1630 Results 24 hrs Laboratory Tests Test 01/10/19 16:18 01/10/19 16:30 Urine Color YELLOW Urine Clarity SLIGHTLY CLOUDY Urine pH 6.0 Urine Specific [place] 1.027 Urine Ketones NEGATIVE mg/dL Urine Nitrite NEGATIVE mg/dL Urine Bilirubin NEGATIVE mg/dL Urine Urobilinogen 1+ mg/dL Urine Leukocyte Esterase NEGATIVE [place]/ul Urine Microscopic RBC 2 /HPF Urine Microscopic WBC 1 /HPF Urine Mucus FEW /HPF Urine Hemoglobin NEGATIVE mg/dL Urine Glucose NEGATIVE mg/dL Urine Total Protein NEGATIVE mg/dl Urine Opiates Screen Negative Urine Barbiturates Negative Urine Amphetamines Screen POSITIVE Urine Benzodiazepines Screen Negative Urine Cocaine Screen Negative Urine Cannabinoids Negative White Blood Count 8.2 10^3/ul Red Blood Count 4.76 10^6/ul Hemoglobin 13.0 g/dl Hematocrit 40.8 % Mean Corpuscular Volume 85.7 fl Mean Corpuscular Hemoglobin 27.3 pg Mean Corpuscular Hemoglobin Concent 31.9 g/dl Red Cell Distribution Width 13.5 % Platelet Count 363 10^3/UL Mean Platelet Volume 9.4 fl Immature Granulocytes % 0.100 % Neutrophils % 58.4 % Lymphocytes % 32.3 % Monocytes % 7.2 % Eosinophils % 1.6 % Basophils % 0.4 % Nucleated Red Blood Cells % 0.0 /100WBC Immature Granulocytes # 0.010 10^3/ul Neutrophils # 4.8 10^3/ul Lymphocytes # 2.7 10^3/ul Monocytes # 0.6 10^3/ul Eosinophils # 0.1 10^3/ul Basophils # 0.0 10^3/ul Nucleated Red Blood Cells # 0.0 10^3/ul Prothrombin Time 13.7 Sec Prothrombin Time Ratio 1.1 INR International Normalized Ratio 1.04 Activated Partial Thromboplast Time 30.8 Sec Sodium Level 145 mmol/L Potassium Level 3.9 mmol/L Chloride Level 109 mmol/L Carbon Dioxide Level 27 mmol/L Anion Gap 9 Blood Urea Nitrogen 17 mg/dl Creatinine 1.09 mg/dl Est Glomerular Filtrat Rate mL/min > 60 mL/min Glucose Level 93 mg/dl Calcium Level 9.2 mg/dl Total Bilirubin 0.4 mg/dl Direct Bilirubin 0.00 mg/dl Indirect Bilirubin 0.4 mg/dl Aspartate Amino Transf (AST/SGOT) 20 IU/L Alanine Aminotransferase (ALT/SGPT) 22 IU/L Alkaline Phosphatase 65 IU/L Total Protein 7.7 g/dl Albumin 4.2 g/dl Globulin 3.50 g/dl Albumin/Globulin Ratio 1.20 Salicylates Level < 1.0 mg/dl Acetaminophen Level < 10.0 ug/ml Ethyl Alcohol Level < 10.0 mg/dl Current Medications Medications Dose Sig/Minda Start Time Status Last (Trade) Ordered Route PRN Stop Time Admin Dose Reason Admin Sodium 1,000 ml @ Q1H STAT 01/10/19 DC 01/10/19 Chloride 1,000 mls/hr IV 16:04 01/10/19 16:40 17:03 Lorazepam 1 mg ONCE ONCE 01/10/19 DC 01/10/19 (Ativan) IV 16:30 01/10/19 16:40 16:31 Lorazepam 1 mg ONCE ONCE 01/10/19 DC 01/10/19 (Ativan) IV 18:30 01/10/19 18:21 18:31 Olanzapine 10 mg ONCE ONCE 01/10/19 DC 01/10/19 (Zyprexa) PO 21:30 01/10/19 21:36 21:31 Lorazepam 2 mg ONCE STAT 01/10/19 DC 01/10/19 (Ativan) IV 21:52 01/10/19 22:00 21:53 Haloperidol 5 mg ONCE STAT 01/10/19 DC 01/10/19 (Haldol) IM 21:52 01/10/19 22:00 21:53 Ketamine 30 mg ONCE ONCE 01/10/19 DC HCl IV 22:30 01/10/19 (Ketalar) 22:31 Procedures/MDM This patient presented to the emergency department with acute psychosis and my differential diagnosis included but was not limited to ruling out life threatening causes of acute psychosis such as Wernickes encephalopathy, hypoxia, hypoglycemia, hypertensive encephalopathy, intracerebral hemorrhage, meningitis, poisoning. After my evaluation and workup on the patient I was able to exclude medical and reversible causes of the patients psychosis. It was my clinical impression the patients symptoms were an exacerbation of his amphetamine abuse. The patient received intravenous fluids as well as Ativan. He remained on campus monitor with no ectopy. The patient no severe electrolyte abnormalities. Urine drug screen was positive for amphetamines. Observation Note: Time: 6 hours Family Hx: No Hypertension Evaluation: Multiple exams showed no improvement of the patient's situation. He continued to be very paranoid and agitated. Patient started to become very agitated and became verbally aggressive with nursing staff. Verbal de- escalation was unable to calm the patient down. He required chemical sedation with Haldol and Ativan. He still remained very anxious. He now stating he is complaining of diffuse pain. There is no obvious signs of trauma and therefore the patient was given IV ketamine at this time to help with his pain and agitation. Critical Care: Time: 35 minutes Treatments/Evaluations: Close monitoring and treatment of unstable vital signs, cardiorespiratory, and neurologic status, while maintaining tight balance of fluid, respiratory, and cardiac interventions. Time does not include performing any of the above billable procedures. Departure Diagnosis: Primary Impression: Hallucinations Additional Impression: Amphetamine abuse Condition: AGUSTÍN Chen MD Jan 10, 2019 16:20
[2019-01-10] MEDS ORDERED: LORAZEPAM 2 MG INJ IV ONE ×2 (16:30→18:30)
[2019-01-10] MEDS ORDERED: BUPR300T48 PO (16:50)
[2019-01-10] MEDS ORDERED: MULTI PO (16:51)
[2019-01-10] MEDS ORDERED: BIKTARVY PO (16:56)
[2019-01-10] MEDS ORDERED: LANS15CA5 PO (16:57)
[2019-01-10] MEDS ORDERED: OLANZAPINE 5 MG TAB PO ONE (21:30)
[2019-01-10] MEDS ORDERED: HALOPERIDOL 5 MG INJ IM STA (21:52)
[2019-01-10] MEDS ORDERED: LORAZEPAM 2 MG INJ IV STA (21:52)
[2019-01-10] MEDS ORDERED: KETAMINE (50 MG/ML) 10 ML VIAL IV ONE (22:30)
[2019-01-11 09:56] VITALS: BP 123/84; PULSE 71; RESP 15
== END 2019-01-11 09:56 | disposition home or self-care (01) ==
LOC: E/R 16:02
DX: F15.10 Other stimulant abuse, uncomplicated (principal); R44.1 Visual hallucinations; R44.0 Auditory hallucinations; R40.2142 Coma scale, eyes open, spontaneous, at arrival to emergency department; R40.2242 Coma scale, best verbal response, confused conversation, at arrival to emergency department; R40.2362 Coma scale, best motor response, obeys commands, at arrival to emergency department; Z21 Asymptomatic human immunodeficiency virus [HIV] infection status; Z87.891 Personal history of nicotine dependence
CPT/HCPCS: 80053; 80307; 81001; 85025; 85610; 85730; 96361; 96372; 96374; 96375; 96376; 99284; J1630; J2060; J7030; Z7610; 81003